=== PATIENT | female | born 1970 | race Caucasian/White ===

== ENCOUNTER 2020-02-26 10:08 | Outpatient (REF) | payer OTHER, BC, SELFPAY ==
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
== END 2020-02-26 10:09 | disposition home or self-care (01) ==
LOC: HO.HMGCX 10:08
PROVIDERS: PCP Internal Medicine; Visit Provider Nurse Practitioner Family
DX: M54.2 Cervicalgia (principal); V87.7XXA Person injured in collision between other specified motor vehicles (traffic), initial encounter
CPT/HCPCS: 72040

== ENCOUNTER 2020-05-20 09:00 | Outpatient (RCR) | payer OTHER, BC, SELFPAY ==
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
== END 2020-07-02 14:58 | disposition home or self-care (01) ==
LOC: HO.PTCHIC 09:00
PROVIDERS: Visit Provider Internal Medicine
DX: M54.2 Cervicalgia (principal); Z87.828 Personal history of other (healed) physical injury and trauma
CPT/HCPCS: 97014; 97110; 97140; 97161

== ENCOUNTER 2020-10-09 11:16 | Outpatient (REF) | payer BC, SELFPAY ==
--- NOTE | ~2020-10-09 | XR_ITS ---
EXAMINATION: XR FOOT, RIGHT CLINICAL INFORMATION: Right foot pain COMPARISON: None TECHNIQUE: AP, lateral, and oblique views of the right foot. FINDINGS: The bones and soft tissues are normal. No fracture. Alignment is anatomic. Joint spaces are maintained. XR/XR foot RT min 3V IMPRESSION: Unremarkable right foot exam
[2020-10-09 14:39] LABS: Erythrocyte Sedimentation Rate 10 MM/HR (0-20)
== END 2020-10-09 11:17 | disposition home or self-care (01) ==
LOC: HO.HMGCX 11:16
PROVIDERS: PCP Internal Medicine; Visit Provider Nurse Practitioner Family
DX: M79.676 Pain in unspecified toe(s) (principal)
CPT/HCPCS: 36415; 73630; 84550; 85652

== ENCOUNTER 2020-10-16 12:56 | Outpatient (REF) | payer BC, SELFPAY ==
--- NOTE | ~2020-10-16 | US_ITS ---
EXAMINATION: ULTRASOUND EXTREMITY NONVASCULAR CLINICAL INFORMATION: Bilateral axillary localized swelling, mass and lump COMPARISON: None TECHNIQUE: Grayscale and color imaging of both axilla using linear and curved transducers FINDINGS: No adenopathy is seen. No solid or cystic mass is seen. US/US extremity nonvascular IMPRESSION: No abnormality seen by ultrasound.
== END 2020-10-16 12:57 | disposition home or self-care (01) ==
LOC: HO.HMGCX 12:56
PROVIDERS: PCP Internal Medicine; Visit Provider Nurse Practitioner Family
DX: R22.30 Localized swelling, mass and lump, unspecified upper limb (principal)
CPT/HCPCS: 76882

== ENCOUNTER 2022-10-23 09:02 | Outpatient (AMB) | payer BC, SELFPAY ==
[2022-10-23 09:09] VITALS: BP 140/90; PULSE 98; RESP 12; TEMP 36.7; O2SAT 98; BMI 31.0
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
[2022-10-23 10:04] VITALS: BP 130/90
== END 2022-10-23 10:11 | disposition home or self-care (01) ==
PROVIDERS: PCP Internal Medicine; Visit Provider Nurse Practitioner Family
DX: G43.109 Migraine with aura, not intractable, without status migrainosus (principal); R20.2 Paresthesia of skin; Z12.11 Encounter for screening for malignant neoplasm of colon; Z12.39 Encounter for other screening for malignant neoplasm of breast; Z00.00 Encounter for general adult medical examination without abnormal findings
CPT/HCPCS: 99214

== ENCOUNTER 2022-10-29 14:41 | Outpatient (REF) | payer BC, SELFPAY ==
--- NOTE | ~2022-10-29 | MM_ITS ---
EXAMINATION: MM SCREENING DIGITAL BREAST TOMOSYNTHESIS, BILATERAL CLINICAL INFORMATION: Screening. Asymptomatic. The lifetime risk of breast cancer based on the Tyrer-Cuzick Model is 8.6%. COMPARISON: Mammography: This study is compared with the prior exam [id number]. TECHNIQUE: Digital breast tomosynthesis is performed in both the craniocaudal and mediolateral oblique views along with computer-aided detection (CAD). Synthesized 2D images are generated from the tomosynthesis. FINDINGS: The breasts are heterogeneously dense, which may obscure small masses (ACR BI-RADS breast composition Category c). There are no significant masses, abnormal calcifications, or other abnormalities. Few, benign calcifications are present in each breast. MM/MM tomosynthesis screening BI IMPRESSION: No mammographic evidence of malignancy. ASSESSMENT: BI-RADS BI-RADS 2 - Benign Findings RECOMMENDATION: Routine annual mammography screening. 1 year F/U This examination should not preclude the clinical evaluation of a suspicious palpable abnormality. This patient's information was entered into a reminder system with a target due date for their next mammogram.
== END 2022-10-29 14:42 | disposition home or self-care (01) ==
LOC: HO.MAMMO 14:41
PROVIDERS: Visit Provider Nurse Practitioner Family
DX: Z12.31 Encounter for screening mammogram for malignant neoplasm of breast (principal)
CPT/HCPCS: 77063; 77067

== ENCOUNTER → 2022-10-29 15:15 | Outpatient (BNV) | payer BC, SELFPAY | PROVIDERS: Visit Provider Radiology Diagnostic Radiology | DX: Z12.31 Encounter for screening mammogram for malignant neoplasm of breast (principal) | CPT/HCPCS: 77063; 77067 ==

== ENCOUNTER 2022-10-30 07:22 | Outpatient (REF) | payer BC, SELFPAY ==
[2022-10-30 11:22] LABS: MANUAL DIFF FLAG NO
[2022-10-30 11:57] LABS: Appearance Urine Clear; Color Urine Yellow; Glucose Urine UA Negative (Negative); Leukocyte Esterase Urine Negative (Negative); Nitrite Urine Negative (Negative); Specific Gravity - Urine 1.025 (1.005-1.025); UMIC TRIGGER UACC YES; Urine Blood Trace (Negative); Urine Ketones Negative (Negative); Urine Protein 30 (1+) mg/dL (Neg-Trace)
[2022-10-30 12:46] LABS: Basophils Absolute Auto 0.1 X10*3/uL (0.0-0.2); Basophils Percent Auto 1.3 % (0-2); Eosinophils Absolute Auto 0.3 X10*3/uL (0.0-0.4); Eosinophils Percent Auto 4.3 % (0-4); Hematocrit 33.5 % (37.0-47.0); Imm Gran Abs Auto 0.02 X10*3/uL (0.00-0.03); Imm Gran Pct Auto 0.3 % (0.0-0.4); Lymphocytes Absolute Auto 2.3 X10*3/uL (1.2-4.9); Lymphocytes Percent Auto 34.2 % (20-40); Mean Corpuscular HGB Conc 29.9 g/dl (31.0-35.0); Mean Corpuscular Hemoglobin 21.9 pg (27.0-33.0); Mean Corpuscular Volume 73.3 fL (80.0-98.0); Mean Platelet Volume 9.5 fL (9.4-12.3); Monocytes Absolute Auto 0.4 X10*3/uL (0.1-1.2); Monocytes Percent Auto 6.3 % (2-11); Neutrophils Absolute Auto 3.6 x10*3/uL (2.0-8.3); Neutrophils Percent Auto 53.6 % (45-73); Platelet Count 482 X10*3/uL (160-400); Red Blood Count 4.57 X10*6/uL (4.20-5.50); Red Cell Distribution Width 17.3 % (11.0-16.0); White Blood Count 6.8 X10*3/uL (4.8-10.8)
[2022-10-30 13:41] LABS: Alanine Aminotransferase 24 U/L (0-31); Albumin Level 4.3 g/dL (3.5-5.0); Alkaline Phosphatase 76 U/L (39-117); Anion Gap 11 (12-20); Aspartate Amino Transferase 21 U/L (5-31); Bilirubin Total 0.6 mg/dL (0.0-1.0); Blood Urea Nitrogen 10 mg/dL (9-16); Calcium 9.4 mg/dL (8.4-10.2); Carbon Dioxide 27 mmol/L (22-29); Chloride 105 mmol/L (96-108); Cholesterol 182 mg/dL; Estimated Glomerular Filt Rate > 60; Glucose Fasting 122 mg/dL (60-99); HDL Cholesterol 45 mg/dL; LDL Cholesterol Calculated 115 mg/dl; Sodium 140 mmol/L (135-145); Total Protein 7.3 g/dL (6.5-8.0); Triglycerides 111 mg/dL
[2022-10-30 13:44] LABS: Bacteria Urine None Seen (None Seen); Calcium Oxalate Crystals Urine Present; UACC Culture Trigger YES
[2022-10-30 13:45] LABS: TSH reflex Free T4 0.67 uIU/mL (0.32-4.0)
[2022-10-30 14:44] LABS: Iron 28 mcg/dL (30-160); Percent Iron Saturation 7 % (15-50); Total Iron Binding Capacity 391 mcg/dL (228-428); Unsaturated Iron Binding 363 ug/dL
== END 2022-10-30 07:23 | disposition home or self-care (01) ==
LOC: HO.HMGCLDS 07:22
PROVIDERS: PCP Nurse Practitioner Family; Visit Provider Nurse Practitioner Family
DX: Z00.00 Encounter for general adult medical examination without abnormal findings (principal); R82.90 Unspecified abnormal findings in urine; Z86.2 Personal history of diseases of the blood and blood-forming organs and certain disorders involving the immune mechanism
CPT/HCPCS: 36415; 80053; 80061; 81001; 83540; 84443; 85025; 87086

== ENCOUNTER 2022-11-11 06:56 | Outpatient (REF) | payer BC, SELFPAY ==
[2022-11-11 11:45] LABS: Appearance Urine Turbid; Color Urine Yellow; Glucose Urine UA Negative (Negative); Leukocyte Esterase Urine Negative (Negative); Nitrite Urine Negative (Negative); PH 5.5 (5.0-9.0); Urine Blood Negative (Negative); Urine Ketones Trace mg/dL (Negative); Urine Protein Trace mg/dL (Neg-Trace)
[2022-11-11 11:55] LABS: Hematocrit 33.9 % (37.0-47.0); Hemoglobin 10.1 g/dl (12.0-16.0); Mean Corpuscular HGB Conc 29.8 g/dl (31.0-35.0); Mean Corpuscular Hemoglobin 21.7 pg (27.0-33.0); Mean Corpuscular Volume 72.7 fL (80.0-98.0); Mean Platelet Volume 9.5 fL (9.4-12.3); Platelet Count 369 X10*3/uL (160-400); Red Blood Count 4.66 X10*6/uL (4.20-5.50); Red Cell Distribution Width 17.9 % (11.0-16.0); White Blood Count 7.5 X10*3/uL (4.8-10.8)
[2022-11-11 12:22] LABS: Alanine Aminotransferase 25 U/L (0-31); Albumin Level 4.2 g/dL (3.5-5.0); Alkaline Phosphatase 70 U/L (39-117); Anion Gap 14 (12-20); Aspartate Amino Transferase 22 U/L (5-31); Bilirubin Total 0.4 mg/dL (0.0-1.0); Blood Urea Nitrogen 12 mg/dL (9-16); Calcium 9.3 mg/dL (8.4-10.2); Carbon Dioxide 22 mmol/L (22-29); Chloride 109 mmol/L (96-108); Estimated Glomerular Filt Rate > 60; Ferritin 11 ng/mL (10-250); Glucose Fasting 114 mg/dL (60-99); Iron 18 mcg/dL (30-160); Percent Iron Saturation 5 % (15-50); Potassium 3.7 mmol/L (3.3-5.1); Sodium 141 mmol/L (135-145); Total Iron Binding Capacity 389 mcg/dL (228-428); Total Protein 7.3 g/dL (6.5-8.0); Unsaturated Iron Binding 371 ug/dL
[2022-11-11 12:44] LABS: Folate 10.2 ng/mL (> or = 4.0); Vitamin B12 580 pg/mL (200-900)
== END 2022-11-11 06:57 | disposition home or self-care (01) ==
LOC: HO.HMGCLDS 06:56
PROVIDERS: PCP Nurse Practitioner Family; Visit Provider Nurse Practitioner Family
DX: Z00.00 Encounter for general adult medical examination without abnormal findings (principal); R73.01 Impaired fasting glucose; E87.6 Hypokalemia; D75.839 Thrombocytosis, unspecified; D50.9 Iron deficiency anemia, unspecified
CPT/HCPCS: 36415; 80053; 81003; 82607; 82728; 82746; 83540; 85027

== ENCOUNTER 2022-11-23 10:31 | Outpatient (AMB) | payer BC, SELFPAY ==
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
[2022-11-23 11:00] VITALS: BP 132/80; PULSE 104; RESP 12; TEMP 36.8; O2SAT 98; BMI 30.8
== END 2022-11-23 11:31 | disposition home or self-care (01) ==
PROVIDERS: PCP Internal Medicine; Visit Provider Nurse Practitioner Family
DX: Z00.00 Encounter for general adult medical examination without abnormal findings (principal); D50.9 Iron deficiency anemia, unspecified; E87.6 Hypokalemia; D75.839 Thrombocytosis, unspecified; R73.01 Impaired fasting glucose
CPT/HCPCS: 99396

== ENCOUNTER 2022-12-22 10:19 | Outpatient (AMB) | payer BC, SELFPAY ==
[2022-12-22 10:03] VITALS: BP 130/70; BMI 30.3
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
== END 2022-12-22 11:16 | disposition home or self-care (01) ==
PROVIDERS: PCP Nurse Practitioner Family; Visit Provider Physician Assistant
DX: Z01.818 Encounter for other preprocedural examination (principal); Z12.11 Encounter for screening for malignant neoplasm of colon
CPT/HCPCS: S0285

== ENCOUNTER → 2022-12-22 10:19 | Outpatient (BNVA) | payer BC, SELFPAY | PROVIDERS: PCP Nurse Practitioner Family; Visit Provider Physician Assistant ==

== ENCOUNTER 2023-01-01 11:44 | Outpatient (AMB) | payer BC, SELFPAY ==
[2023-01-01 11:51] VITALS: BP 126/74; PULSE 87; RESP 12; TEMP 36.2; O2SAT 99; BMI 30.7
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
== END 2023-01-01 12:59 | disposition home or self-care (01) ==
PROVIDERS: PCP Nurse Practitioner Family; Visit Provider Nurse Practitioner Family
DX: R07.89 Other chest pain (principal); R06.02 Shortness of breath
CPT/HCPCS: 99213

== ENCOUNTER 2023-01-01 12:54 | Outpatient (REF) | payer BC, SELFPAY ==
[2023-01-01 14:39] LABS: Hematocrit 35.2 % (37.0-47.0); Hemoglobin 10.5 g/dl (12.0-16.0); Mean Corpuscular HGB Conc 29.8 g/dl (31.0-35.0); Mean Corpuscular Hemoglobin 22.9 pg (27.0-33.0); Mean Corpuscular Volume 76.7 fL (80.0-98.0); Mean Platelet Volume 9.7 fL (9.4-12.3); Platelet Count 393 X10*3/uL (160-400); Red Blood Count 4.59 X10*6/uL (4.20-5.50); White Blood Count 6.3 X10*3/uL (4.8-10.8)
[2023-01-01 15:06] LABS: Troponin-I High Sensitivity < 2.7 ng/L (<3.5-17.0)
[2023-01-01 15:13] LABS: Ferritin 9 ng/mL (10-250); Iron 25 mcg/dL (30-160); Percent Iron Saturation 7 % (15-50); Total Iron Binding Capacity 369 mcg/dL (228-428); Unsaturated Iron Binding 344 ug/dL
== END 2023-01-01 12:55 | disposition home or self-care (01) ==
LOC: HO.WFDLDS 12:54
PROVIDERS: Visit Provider Nurse Practitioner Family
DX: D50.9 Iron deficiency anemia, unspecified (principal); R07.89 Other chest pain; R06.02 Shortness of breath
CPT/HCPCS: 36415; 82728; 83540; 84484; 85027

== ENCOUNTER → 2023-02-17 10:50 | Outpatient (REF) | payer BC, SELFPAY ==
--- NOTE | 2023-02-17 10:52 | CA_ITS ---
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 LV ejection fraction with moderate LVH with grade 1 diastolic dysfunction 2. Trivial aortic regurgitation 3. Mildly dilated ascending aorta at 3.7 cm 4. No gross pericardial effusion Findings Left Ventricle Normal left ventricular size and systolic function. There is moderately increased left ventricular wall thickness. The visually estimated ejection fraction is between 60-65%. Spectral Doppler is indicative of an impaired relaxation filling pattern. E/E prime ratio is <8, consistent with normal filling pressures. Right Ventricle Normal right ventricular cavity size and systolic function. Atria Both atria are normal in size. Interatrial shunt cannot be excluded. Aortic Valve Normal aortic valve structure and function. There is no aortic valve stenosis. There is trace (trivial) aortic valve regurgitation. Mitral Valve Normal mitral valve structure and function. There is trace mitral valve regurgitation. There is no mitral valve stenosis. Pulmonic Valve The pulmonic valve is likely normal. There is trace pulmonic valve regurgitation. Tricuspid Valve Normal tricuspid valve structure. There is trace tricuspid valve regurgitation. The right ventricular systolic pressure is normal. The right ventricular systolic pressure is 18 mmHg. Normal right atrial pressure. There is no evidence of pulmonary hypertension. Great Vessels The pulmonary artery was not well visualized. There is mild dilatation of the ascending aorta measuring 3.70 cm. Venous The inferior vena cava is normal in size and collapses greater than 50% with inspiration. Pericardium/Pleural There is no evidence of pericardial effusion. Prior Study Comparison No prior study available for comparison. Measurements 2D Linear Measurements IVSd: 1.43 0.6-0.9/0.6-1.0 cm LVIDd: 4.00 3.9-5.3/4.2-5.9 cm LVIDd Index: 2.16 2.4-3.2/2.2-3.1 cm/m2 LVIDs: 2.64 2.0-3.6 cm LVPWd: 1.44 0.7-1.1 cm LA Diam: 3.20 2.7-3.8/3.0-4.0 cm LAIDs Index: 1.73 1.5-2.3 cm/m2 LV Mass: 270.65 67-162/88-224 g LV Mass Index: 146.30 43-95/49-115 g/m2 LVOT Diam: 2.00 3.0+(-)1.3 cm 2D Systolic Function EF 4C: 64.00 >55% EF 2C: 64.70 >55% EF BiP: 63.60 >55% Mitral Valve MV Pk E: 0.56 MV PK A: 0.79 MV Decel Time: 180.00 E/A: 0.70 E'Lateral: 5.55 E'Medial: 4.90 E/E' Med: 11.40 E/E' Lat: 10.00 PHT: 53.00 MVA PHT: 4.15 Decel Jay[place]: 3.10 Aortic Valve AoV Pk Joseph: 1.40 AoV Mn Joseph: 1.01 AoV VTI: 0.28 AoV Pk Grad: 8.00 Aov Mn Grad: 4.00 NAYA Cont.VTI: 2.19 LVOT LVOT Pk Joseph: 0.85 LVOT Mn Joseph: 0.61 LVOT VTI: 0.20 LVOT Pk Grad: 3.00 LVOT Mn Grad: 2.00 LVOT Diam: 2.00 LVOT Area: 3.14 Diastolic Function MV Pk E: 0.56 MV Pk A: 0.79 E/A: 0.70 E'Medial: 4.90 E/E' Med: 11.40 E' Laterial: 5.55 E/E' Lat: 10.00 Right Ventricle TAPSE (mm): 27.80 TVS' Joseph: 11.40 Tricuspid Valve TR Pk Joseph: 1.55 TR Pk Grad: 10.00 RA Press: 8.00 RVSP: 18.00 Great Vessels Aorta Sinus of Valsalva: 3.82 2.0-3.[address] [place]: 2.79 1.7-3.4 cm Ao Asc: 3.70 2.1-3.4 cm Updated in Other Vendor System with Status of Final Julio Hurtado MD electronically signed on 02/17/2023 5:27:18 PM with status of Final
== END ==
LOC: HO.CARD 10:50
PROVIDERS: PCP Nurse Practitioner Family; Visit Provider Nurse Practitioner Family
DX: R07.89 Other chest pain (principal); R06.02 Shortness of breath
CPT/HCPCS: 93306

== ENCOUNTER → 2023-02-17 10:52 | Outpatient (BNV) | payer BC, SELFPAY | PROVIDERS: PCP Nurse Practitioner Family; Visit Provider Internal Medicine Cardiovascular Disease | DX: R07.89 Other chest pain (principal); R06.02 Shortness of breath | CPT/HCPCS: 93306 ==

== ENCOUNTER 2023-03-01 15:02 | Outpatient (AMB) | payer BC, SELFPAY ==
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
[2023-03-01 15:06] VITALS: BP 132/85; PULSE 95; BMI 30.6
== END 2023-03-01 15:23 | disposition home or self-care (01) ==
PROVIDERS: PCP Nurse Practitioner Family; Visit Provider Internal Medicine
DX: R07.89 Other chest pain (principal)
CPT/HCPCS: 99203

== ENCOUNTER → 2023-03-01 15:02 | Outpatient (BNVA) | payer BC, SELFPAY | PROVIDERS: PCP Nurse Practitioner Family; Visit Provider Internal Medicine ==

== ENCOUNTER 2023-03-26 13:29 | Outpatient (AMB) | payer BC, SELFPAY ==
[2023-03-26 13:49] VITALS: BP 128/78; PULSE 106; RESP 13; TEMP 36.5; O2SAT 99; BMI 31.0
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
== END 2023-03-26 14:45 | disposition home or self-care (01) ==
PROVIDERS: PCP Nurse Practitioner Family; Visit Provider Nurse Practitioner Family
DX: D50.9 Iron deficiency anemia, unspecified (principal); G43.909 Migraine, unspecified, not intractable, without status migrainosus
CPT/HCPCS: 99213

== ENCOUNTER 2023-09-21 12:01 | Outpatient (AMB) | payer BC, SELFPAY ==
--- OUTSIDE RECORDS SUMMARY | 2023-09-21 12:03 | XMS_ITS | Continuity of Care Document ---
Author Organization [facility] Address [address] [place] [address]- Care Team Providers Care Pony Trimmer Name Role Phone Radha Roy NP Primary Care Physician [place] [facility] [place] 11/02/22 - 12/02/22 [facility] [address] [place] [address]- Allergies, Adverse Reactions, Alerts No Known Allergies Medications diclofenac 1% topical gel See Instructions, apply a thin film to left Lateral chest wall twice a day, # 100 Gm, 0 Refills, Maintenance, 11/23/22 14:27:00 EDT, [facility]/pharmacy #[id number], Partial fill upon patient request if the prescription is for a schedule II opioid drug., 161.2, cm... Start Date: 11/23/22 Status: Ordered Iron 100 Plus By Mouth, Daily, 0 Refills, Maintenance, 11/23/22 13:34:00 EDT, Partial fill upon patient request if the prescription is for a schedule II opioid drug. Start Date: 11/23/22 Status: Ordered Problem List Condition Confirmation Course Effective Dates Status Health St atus Informant Obese class I Confirmed Active Social History Social History Type Response Smoking Status Never (less than 100 in lifetime) entered on: 11/23/22 Sex Patient Care team information Care Team Personnel Name: Radha Roy NP Position: Reference Physician Member Role: PCP Address: Address: [address] [place] [id number]- Care Team Related Persons Name: GO ALEN Address: home [address] [place] [address]
--- OUTSIDE RECORDS SUMMARY | 2023-09-21 12:03 | XMS_ITS | Continuity of Care Document ---
Author Organization [facility] ter Address [address] [place] [id number]- Care Team Providers Care Deck Mate Name Role Phone Radha Roy NP Primary Care Physician [place] [facility] [place]03/23 - 06/13/[address] [address]- Attending Physician: Delroy Zhao MD Admitting Physician: Delroy Zhao MD Referring Physician: Delroy Zhao MD Allergies, Adverse Reactions, Alerts No Known Allergies Medications diclofenac 1% topical gel See Instructions, apply a thin film to left Lateral chest wall twice a day, # 100 Gm, 0 Refills, Maintenance, 11/23/22 14:27:00 EDT, [facility]/pharmacy #[id number], Partial fill upon patient request if [...] Reference Physician Member Role: PCP Address: Address: [address] [place] [id number]- Care Team Related Persons Name: ALEN STILES Address: home [address] [place] [address]
--- OUTSIDE RECORDS SUMMARY | 2023-09-21 12:03 | XMS_ITS | Continuity of Care Document ---
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 Or Night Nurse Supervisor Name Role Phone Radha Roy NP Primary Care Physician Encounter [facility] [place] Date(s): 11/23/22 - 03/19/23 [facility] [address] [place] [address]- Attending Physician: Rebecca Gupta MD Admitting Physician: Rebecca Gupta MD Referring Physician: Radha Roy NP Allergies, Adverse Reactions, Alerts No Known Allergies Medications diclofenac 1% topical gel See Instructions, apply a thin film to left Lateral chest wall twice a day, # 100 Gm, 0 Refills, Maintenance, 11/23/22 14:27:00 EDT, [facility]/pharmacy #[id number], Partial fill upon patient request [...] Reference Physician Member Role: PCP Address: Address: [address] [place] [id number]- Care Team Related Persons Name: ALEN STILES Address: home [address] [place] [address]
--- OUTSIDE RECORDS SUMMARY | 2023-09-21 12:03 | XMS_ITS | Continuity of Care Document ---
Author Organization [facility] Address [address] [place] [address]- Care Team Providers Care Prop Sawyer Name Role Phone Radha Roy NP Primary Care Physician [place] [facility] [place](s): 02/17/23 - 03/19/23 [facility] [address] [place] [address]- Attending Physician: Cecelia Mercado Admitting Physician: AdmCecelia martinez Referring Physician: Admtr, Ar8 Allergies, Adverse Reactions, Alerts No Known Allergies [...] 100 in lifetime) entered on: 11/23/22 Sex MG Breast Views * Event Display: MM Mammogram Authored Date: * Event Display: MM Mammogram Authored Date: * Event Display: MM Mammogram Authored Date: Patient Care team information Care Team Personnel Name: Radha Roy NP Position: Reference Physician Member Role: PCP Address: Address: [address] [place] [id number]- Care Team Related Persons Name: ALEN STILES Address: home [address] [place] [address]
[2023-09-21 12:09] VITALS: BP 130/80; PULSE 122; TEMP 36.4; O2SAT 100; BMI 30.6
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
== END 2023-09-21 12:46 | disposition home or self-care (01) ==
PROVIDERS: PCP Nurse Practitioner Family; Visit Provider Physician Assistant
DX: J02.9 Acute pharyngitis, unspecified (principal)
CPT/HCPCS: 87880; 99213

== ENCOUNTER 2023-09-21 17:01 | Outpatient (REF) | payer BC, SELFPAY ==
[2023-09-21 17:49] LABS: Influenza A PCR NEGATIVE (Negative); Influenza B PCR NEGATIVE (Negative); Resp Syncy Virus RNA Qual PCR NEGATIVE (Negative); SARS COV2 PCR INHOUSE POSITIVE (Negative)
== END 2023-09-21 17:02 | disposition home or self-care (01) ==
LOC: HO.LNP 17:01
PROVIDERS: Visit Provider Physician Assistant
DX: J06.9 Acute upper respiratory infection, unspecified (principal); Z13.9 Encounter for screening, unspecified
CPT/HCPCS: 0241U

== ENCOUNTER 2023-11-01 14:27 | Outpatient (REF) | payer BC, SELFPAY ==
--- NOTE | ~2023-11-01 | MM_ITS ---
EXAMINATION: MM DIAGNOSTIC DIGITAL BREAST TOMOSYNTHESIS, BILATERAL US BREAST LIMITED, BILATERAL MAMMOGRAPHY: CLINICAL INFORMATION: Patient complaining of bilateral axillary swelling. Due for yearly screening. COMPARISON: Mammography: 10/29/2022, 10/16/2020, 10/31/2015. TECHNIQUE: Digital breast tomosynthesis is performed in both the craniocaudal and mediolateral oblique views along with computer-aided detection (CAD). Synthesized 2D images are generated from the tomosynthesis. In addition, full-field 3-D bilateral lateral exaggerated cc views were obtained. FINDINGS: The breasts are heterogeneously dense, which may obscure small masses (ACR BI-RADS breast composition Category c). There are bilateral skin calcifications, unchanged. There are bilateral prominent axillary fat pads. This is likely what the patient is feeling. No abnormal lymph nodes or skin abnormalities. There are no suspicious masses, suspicious grouped calcifications, or areas of architectural distortion in either breast. There are bilateral small oval and round circumscribed masses consistent with multiple cysts. The heterogeneously dense parenchymal pattern is stable from prior exams. There is no skin or axillary abnormality. ULTRASOUND: CLINICAL INFORMATION: Bilateral axillary swelling. COMPARISON: None TECHNIQUE: Targeted sonographic evaluation of both axillae was performed using a high frequency linear transducer. Selected archived documentation. FINDINGS: RIGHT AXILLA: There is fatty axillary tissue. No suspicious mass is seen. There is no cystic abnormality. There is no pathologic acoustic shadowing. There is no axillary adenopathy. LEFT BREAST: There is fatty axillary tissue. No suspicious mass is seen. There is no cystic abnormality. There is no pathologic acoustic shadowing. There is no axillary adenopathy. MM/MM tomosynthesis diagnostic BI IMPRESSION: -There are no findings suspicious for malignancy in either breast. -There are benign findings bilaterally. -No sonographic or mammographic abnormality evident in the bilateral axillary regions. There are prominent axillary fat pads, which the patient is likely feeling. These are benign. -Recommend the patient resume routine annual screening to include both breasts. OVERALL ASSESSMENT: Mammography: BI-RADS 2 - Benign Findings Ultrasound: BI-RADS 2 - Benign Findings RECOMMENDATION: 1 year F/U Results were provided to the patient at time of visit by the technologist. This patient's information was entered into a reminder system with a target due date for their next mammogram.
== END 2023-11-01 14:28 | disposition home or self-care (01) ==
LOC: HO.MAMMO 14:27
PROVIDERS: Absent Provider Obstetrics & Gynecology Female Pelvic Medicine and Reconstructive Surgery; PCP Nurse Practitioner Family; Visit Provider Nurse Practitioner Family
DX: N63.20 Unspecified lump in the left breast, unspecified quadrant (principal); N63.21 Unspecified lump in the left breast, upper outer quadrant
CPT/HCPCS: 76642; 77062; 77066

== ENCOUNTER → 2023-11-01 14:45 | Outpatient (BNV) | payer BC, SELFPAY | PROVIDERS: Absent Provider Obstetrics & Gynecology Female Pelvic Medicine and Reconstructive Surgery; PCP Nurse Practitioner Family; Visit Provider Radiology Diagnostic Radiology | DX: R92.1 Mammographic calcification found on diagnostic imaging of breast (principal) | CPT/HCPCS: 76642; 77062; 77066 ==

== ENCOUNTER 2023-11-18 14:10 | Outpatient (AMB) | payer BC, SELFPAY ==
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
[2023-11-18 14:25] VITALS: BP 149/79; PULSE 89; BMI 29.6
== END 2023-11-18 14:34 | disposition home or self-care (01) ==
PROVIDERS: PCP Nurse Practitioner Family; Visit Provider Surgery
DX: D17.20 Benign lipomatous neoplasm of skin and subcutaneous tissue of unspecified limb (principal)
CPT/HCPCS: 99204

== ENCOUNTER → 2023-11-18 14:10 | Outpatient (BNVA) | payer BC, SELFPAY | PROVIDERS: PCP Nurse Practitioner Family; Visit Provider Surgery ==

== ENCOUNTER 2024-01-27 09:13 | Outpatient (AMB) | payer BC, SELFPAY ==
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
[2024-01-27 10:16] VITALS: BP 120/84; PULSE 104; TEMP 36.8; O2SAT 100; BMI 27.8
== END 2024-01-27 10:31 | disposition home or self-care (01) ==
PROVIDERS: PCP Nurse Practitioner Family; Visit Provider Registered Nurse
DX: J30.1 Allergic rhinitis due to pollen (principal); B37.9 Candidiasis, unspecified

== ENCOUNTER → 2024-04-26 11:01 | Outpatient (REF) | payer BC, SELFPAY ==
--- NOTE | 2024-04-26 11:09 | CA_ITS ---
Transthoracic Echocardiogram Patient (Last, First, Middle): Kel Berrios, Gender: Female Date of : 1970 Age: 53 Procedure Date: 04/26/2024 Procedure Type: Transthoracic Echocardiogram Location: OP Height: 165.1 cm Weight: 80.74 kg BSA: 1.88 m2 Heart Rate: bpm BP: 120 / 80 mmHg Mortgage Field Inspector: CORRY Garcias MD: Delroy Zhao MD [employer] Specialist: Julio Hurtado MD Symptoms: I77.89 - Other specified disorders of arteries and arterioles Study Quality: Adequate ECG Rhythm: Sinus Conclusions: - Mildly dilated ascending aorta at 3.8 cm Findings Great Vessels There is mild dilatation of the ascending aorta measuring 3.80 cm. Small plaque is seen in the ascending aorta. Prior Study Comparison No significant change compared to prior study dated: 02/17/2023. Measurements 2D Linear Measurements Ao Root: 3.80 2.1-3.5 cm LVOT Diam: 2.00 3.0+(-)1.3 cm Mitral Valve MV Pk E: 0.51 MV PK A: 0.83 MV Decel Time: 77.00 E/A: 0.60 E'Lateral: 7.18 E'Medial: 6.64 E/E' Med: 7.60 E/E' Lat: 7.00 PHT: 23.00 MVA PHT: 9.57 Decel [place]: 6.55 LVOT LVOT Pk Joseph: 0.97 LVOT Mn Joseph: 0.69 LVOT VTI: 0.20 LVOT Pk Grad: 4.00 LVOT Mn Grad: 2.00 LVOT Diam: 2.00 LVOT Area: 3.14 Diastolic Function MV Pk E: 0.51 MV Pk A: 0.83 E/A: 0.60 E'Medial: 6.64 E/E' Med: 7.60 E' Laterial: 7.18 E/E' Lat: 7.00 Great Vessels Aorta Ao Root-2D: 3.80 2.0-3.7 cm Ao Asc: 3.80 2.1-3.4 cm Ao Arch: 3.60 Updated in Other Vendor System with Status of Final Julio Hurtado MD electronically signed on 04/27/2024 1:25:45 PM with status of Final
== END ==
LOC: HO.CARD 11:01
PROVIDERS: PCP Nurse Practitioner Family; Visit Provider Internal Medicine
DX: I77.89 Other specified disorders of arteries and arterioles (principal)
CPT/HCPCS: 93308

== ENCOUNTER → 2024-04-26 11:09 | Outpatient (BNV) | payer BC, SELFPAY | PROVIDERS: PCP Nurse Practitioner Family; Visit Provider Internal Medicine Cardiovascular Disease | DX: I77.810 Thoracic aortic ectasia (principal) | CPT/HCPCS: 93308; 93321 ==

== ENCOUNTER 2024-05-02 08:39 | Outpatient (AMB) | payer BC, SELFPAY ==
[2024-05-02 09:07] VITALS: BP 124/72; PULSE 88; BMI 26.8
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
== END 2024-05-02 09:55 | disposition home or self-care (01) ==
PROVIDERS: PCP Nurse Practitioner Family; Visit Provider Nurse Practitioner Family
DX: R07.89 Other chest pain (principal); R06.02 Shortness of breath; I77.810 Thoracic aortic ectasia
CPT/HCPCS: 93010; 99213

== ENCOUNTER → 2024-05-02 08:39 | Outpatient (BNVA) | payer BC, SELFPAY | PROVIDERS: PCP Nurse Practitioner Family; Visit Provider Nurse Practitioner Family | DX: R07.89 Other chest pain (principal); R06.02 Shortness of breath; I77.810 Thoracic aortic ectasia | CPT/HCPCS: 93005 ==

== ENCOUNTER 2024-07-14 13:22 | Outpatient (REF) | payer BC, SELFPAY ==
[2024-07-14 14:49] LABS: MANUAL DIFF FLAG NO
[2024-07-14 15:24] LABS: Basophils Percent Auto 0.7 % (0-2); Eosinophils Absolute Auto 0.2 X10*3/uL (0.0-0.4); Eosinophils Percent Auto 2.8 % (0-4); Imm Gran Abs Auto 0.02 X10*3/uL (0.00-0.03); Imm Gran Pct Auto 0.3 % (0.0-0.4); Lymphocytes Absolute Auto 1.9 X10*3/uL (1.2-4.9); Lymphocytes Percent Auto 30.5 % (20-40); Mean Corpuscular HGB Conc 28.5 g/dl (31.0-35.0); Mean Corpuscular Hemoglobin 19.3 pg (27.0-33.0); Mean Corpuscular Volume 67.7 fL (80.0-98.0); Mean Platelet Volume 9.2 fL (9.4-12.3); Monocytes Absolute Auto 0.4 X10*3/uL (0.1-1.2); Monocytes Percent Auto 7.1 % (2-11); Neutrophils Absolute Auto 3.6 x10*3/uL (2.0-8.3); Neutrophils Percent Auto 58.6 % (45-73); Platelet Count 389 X10*3/uL (160-400); Red Blood Count 2.54 X10*6/uL (4.20-5.50); Red Cell Distribution Width 18.6 % (11.0-16.0); White Blood Count 6.1 X10*3/uL (4.8-10.8)
[2024-07-14 16:06] LABS: Alanine Aminotransferase 10 U/L (0-31); Anion Gap 11 (12-20); Aspartate Amino Transferase 19 U/L (5-31); Blood Urea Nitrogen 9 mg/dL (9-16); Calcium 8.9 mg/dL (8.4-10.2); Carbon Dioxide 28 mmol/L (22-29); Chloride 106 mmol/L (96-108); Estimated Glomerular Filt Rate > 60; Glucose Random 86 mg/dL (60-115); Magnesium 2.2 mg/dL (1.6-2.6); Potassium 3.2 mmol/L (3.3-5.1); Sodium 142 mmol/L (135-145); Total Protein 6.8 g/dL (6.5-8.0)
[2024-07-14 16:07] LABS: Alkaline Phosphatase 62 U/L (39-117); Bilirubin Total 0.5 mg/dL (0.0-1.0)
[2024-07-14 16:20] LABS: TSH reflex Free T4 0.64 uIU/mL (0.32-4.0)
[2024-07-14 16:45] LABS: D Dimer High Sensitivity 428 NG/ML
[2024-07-14 16:46] LABS: Hematocrit 17.2 % (37.0-47.0); Hemoglobin 4.9 g/dl (12.0-16.0)
== END 2024-07-14 13:23 | disposition home or self-care (01) ==
LOC: HO.LAB 13:22
PROVIDERS: PCP Nurse Practitioner Family; Visit Provider Nurse Practitioner Family
DX: R55 Syncope and collapse (principal)
CPT/HCPCS: 36415; 80053; 83735; 84443; 85025; 85379; 93005

== ENCOUNTER 2024-07-14 13:22 | Outpatient (AMB) | payer BC, SELFPAY ==
[2024-07-14 13:41] VITALS: BP 113/61; PULSE 97; BMI 26.8
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
[2024-07-14 13:42] VITALS: BP 113/71; BP 122/67; PULSE 100; PULSE 101
--- OUTSIDE RECORDS SUMMARY | 2024-07-14 15:14 | XMS_ITS | Data Portability ---
Author Organization 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 The onset of pain was in December 2022, following the administration of numerous flu shots. The patient describes the pain intensity as a 4-5 on a scale of 10 at rest, which increases during grabbing or lifting objects. Despite trying warm and cold compresses, the patient has not taken any anti-inflammatory medications. The pain has resulted in weakness in the right arm, leading the patient to rely on their left hand for support during activities. She has a past history of gastritis. She takes no medications. She has no medication allergies. She is and employed. She denies tobacco use. No personal history of blood clots, however, she does have a family history. Past medical, surgical, family and social history; Medications, Allergies and 12-point review of systems have been reviewed, updated and charted. Physical Examination: Height and weight as noted in chart. Constitutional: Patient pleasant, well appearing and in NAD. Mental status: Patient is alert and oriented to person, place and time. No short-term memory deficits. Psychiatric: Mood and affect are appropriate. Head: Normocephalic and atraumatic. Exterior inspection of the ears and nose was unremarkable. Hearing grossly intact. Eyes: Sclera are not blue. 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 Full extraocular motion. Neck: Supple with age-appropriate ROM. No tracheal deviation. No obvious JVD. Respiratory: Non-labored breathing. Symmetric excursion. No audible wheezing or crackles. Skin: No rashes, lesions, wounds to the upper extremities. Normal turgor and coloration. Musculoskeletal: On examination of the right elbow, there is no effusion, erythema or ecchymosis. Range of motion from 0-135? ? ?. She has full pronosupination. Her elbow is stable to varus and valgus stress. Distal biceps and distal triceps intact. She has point tenderness directly over the common extensor origin at the lateral epicondyle. Imaging: X-rays ordered, obtained and reviewed at [facility]. These images included 3 views of the right elbow. No acute fractures or dislocations. Normal radiocapitellar and ulnohumeral joint space. 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 I discussed etiology of the patient's symptoms with her at length today. I recommended a conservative course to include a cortisone injection to the right elbow common extensor origin today that she tolerated very well. I demonstrated eccentric strengthening exercises and also provided a home handout for exercises and stretches. I referred her for an elbow sleeve to provide compressive support. Should her symptoms fail to improve and/or recur despite these conservative measures over the next 2-3 months, recommend she call back for another visit. I did recommend she be careful with heavy lifting activities and activities that exacerbate her symptoms. All questions and concerns addressed. Today's visit involved examining the patient, reviewing the history, reviewing the radiographic studies, counseling the patient regarding treatment options, and the administrative tasks including placing orders, preparing patient information and home handouts and preparing the visit note. This note was generated with [facility] speech recognition body stylist dictation software. Please excuse any errors that may have been overlooked during review of this note. Sometimes, these errors may affect the content or meaning of a given sentence. Please call for corrections. Not available 07/15/2023 11:41:10 Plan of Treatment Reminders Order Date Submit Date Provider Last Modified By Organization Details Last Modified Time Details Appointments None record ed. Lab None record ed. Referral None record ed. Procedures None record ed. Surgeries None record ed. Imaging XR, elbow, 2 view 024 07/15/19 24 [email or web address] Not available 4 13:04:31 Medication Orders None record ed. Patient TargetsNo targets recorded. Patient InstructionsNo instructions recorded. Reason for Referral None Reported. Procedures Surgical History Date Name Laterality Status Provider Name and Address Organization Details Recorded Time 4 Elbow Kenalog 1cc Injection, L/R completed [facility] [address] [facility] [address], [address], [facility] 07/15/2023 11:43:49 Imaging Results None recorded. Procedure Notes None recorded. Medical Equipment None Reported. Allergies No known drug allergies Medications Name Sig Start Date Stop Date Status Note LastModified by Organization Details LastModified Time amoxicillin 500 mg capsule TAKE 1 CAPSULE BY MOUTH THREE TIMES A DAY FOR 7 DAYS active Not Available Not Available N ot Available fluconazole 150 mg tablet TAKE 1 TABLET AND REPEAT DOSE AFTER 72 HOURS IF NO IMPROVEMENT IN SYMPTOMS. active Not Available Not Available No t Available lidocaine 5 % topical patch APPLY 1 PATCH TOPICALLY DAILY LEAVE ON MOST PAINFUL AREA FOR UP TO 12 HOURS active Not Available Not Available Not Available indomethacin 50 mg capsule TAKE 1 CAPSULE BY MOUTH 3 TIMES A DAY ADMINISTER WITH FOOD OR MILK active Not Available Not Available No t Available fluticasone propionate 50 mcg/actuatio n nasal spray,suspen tatyana SPRAY 1 SPRAY INTO EACH NOSTRIL DAILY active Not Available Not Available No t Available iron active Not Available Not Availa ble Not Available diclofenac 1 % topical gel APPLY A THIN FILM TO LEFT LATERAL CHEST WALL TWICE A DAY active Not Available Not Available Not Available Vitals Date Recorded Body height Body mass index (BMI) Body weight Provider Name and Address Organization Details Last Updated DateTime 07/15/2023 160.02 cm 33.7 kg/m2 26834.55 g Diana Mcmahan [facility] 07/15/2023 10:36:18 Social History None recorded. Functional Status None recorded. Mental Status None recorded. Family History Nothing Reported. Medical History No medical history recorded. Gynecological HistoryNo gynecological history recorded. Obstetrics History GPAL:G 0 P 0 0 0 0 Past Encounters Encounter ID Performer Location Encounter Start Date Encounter Closed Date Diagnosis/Indication Diagnosis SNOMED-CT Code Diagnosis ICD10 Code Diagnosis Note [id number] Jeffery Soler MD [facility] 2nd floor [address] [place] [address] 07/15/2023 10:26:15 08/10/2023 19:39:37 Pain of right elbow joint 9270934013 1291409 M25.521 Lateral ep icondylitis of right humerus 5914538468 28877 M77.11 Health Concerns Section Related Observation LastModified by Organization Detai ls LastModified Time None Recorded Concern Status LastModified by Organization Details LastModified Time None Recorded Advance Directives Directive None Recorded Payers Encounter Date Sequence Insurance Name Policy Number Policy Miller Covered Member ID Miller Member ID Guarantor Name 07/15/2023 1 [place] [place] [place] 111 Kel Berrios [id number] Kel Dejesus Episode No OBEpisode recorded.
== END 2024-07-14 14:31 | disposition home or self-care (01) ==
LOC: HO.HCS 13:22
PROVIDERS: PCP Nurse Practitioner Family; Visit Provider Nurse Practitioner Family
DX: R55 Syncope and collapse (principal); R07.89 Other chest pain; I77.810 Thoracic aortic ectasia; R06.02 Shortness of breath
CPT/HCPCS: 93010; 99214

== ENCOUNTER 2024-07-14 17:58 | Inpatient (IN) | payer BC, SELFPAY ==
[2024-07-14] VITALS (9 sets, daily range): BP systolic 121–138; BP diastolic 52–75; PULSE 90–101; RESP 11–21; TEMP 36.8–37.2; O2SAT 98–100; BMI 28.6
--- NOTE | ~2024-07-14 | CT_ITS ---
CLINICAL HISTORY: sob CT angiogram chest/pulmonary arteries with contrast Multiplanar reconstructions and MIPS Comparison: None Findings: No filling defects are noted to suggest pulmonary embolus. Main pulmonary artery normal in caliber. Thoracic aorta normal caliber without dissection. Heart size normal. Great vessel origins patent. No coronary calcifications. No significant focal parenchymal abnormalities. No significant mediastinal or hilar adenopathy. No free pleural fluid. No acute bony abnormality noted. 4.5 cm right axillary cystic abnormality. Question postsurgical seroma. Irregular left axillary soft tissue density. Overlying irregular skin configuration noted. Question postsurgical scar. Please correlate regarding patient's surgical history. Impression: No evidence of pulmonary embolus This document has been electronically signed by: Tod No MD on 07/14/2024 20:34:57
--- NOTE | ~2024-07-14 | US_ITS ---
CLINICAL HISTORY: vaginal bleeding Transabdominal and transvaginal pelvic ultrasound Comparison: None Findings: Uterus 13.4 x 5.9 x 8.9 cm. Endometrium 1.4 cm. Lobular fibroids are noted but not measured. A 1.1 cm fibroid was measured. No significant free fluid. Right ovary 3.0 x 1.4 x 2.7 cm. 2.3 x 1.7 cm simple cyst. Left ovary was not identified. Impression: Lobular fibroids, not measured Simple cyst right ovary This document has been electronically signed by: Tod No MD on 07/14/2024 21:00:33
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
--- NOTE | 2024-07-14 18:05 | ECG_ITS ---
Test Reason : weakness Blood Pressure : */* mmHG Vent. Rate : 93 BPM Atrial Rate : 93 BPM P-R Int : 142 ms QRS Dur : 84 ms QT Int : 354 ms P-R-T Axes : 71 37 58 degrees QTcB Int : 440 ms Normal sinus rhythm Normal ECG No previous ECGs available Referred By: Nicky Ervin Electronically Signed By: KIRK HANDLEY
--- NOTE | 2024-07-14 18:36 | MHC.EDTECH ---
Patient brought in from triage area,patient changed into hospital attire, EKG taken per order and signed by provider, pt placed on the surveillance system monitor,vitals taken,labs and Type N Screen drawn and sent to lab,band applied to right wrist,nurse at bedside,call valdez in reach
[2024-07-14 18:38] LABS: MANUAL DIFF FLAG NO
[2024-07-14 18:44] LABS: INTERNATIONAL NORM RATIO 1.1 (0.9-1.1); Prothrombin Time 12.6 SEC (10.9-12.4)
[2024-07-14 18:56] LABS: Alanine Aminotransferase 8 U/L (0-31); Alkaline Phosphatase 59 U/L (39-117); Anion Gap 11 (12-20); Aspartate Amino Transferase 16 U/L (5-31); Bilirubin Total 0.4 mg/dL (0.0-1.0); Blood Urea Nitrogen 8 mg/dL (9-16); Calcium 8.6 mg/dL (8.4-10.2); Carbon Dioxide 27 mmol/L (22-29); Chloride 108 mmol/L (96-108); Creatinine Clr Calc Pharmacy 93.8; Estimated Glomerular Filt Rate > 60; Glucose Random 85 mg/dL (60-115); Potassium 2.9 mmol/L (3.3-5.1); Sodium 143 mmol/L (135-145); Total Protein 6.4 g/dL (6.5-8.0)
[2024-07-14 19:04] LABS: OBS Int Ctl Valid YES; OBS1 POSITIVE (NEGATIVE)
[2024-07-14 19:06] LABS: Basophils Percent Auto 0.3 % (0-2); Eosinophils Absolute Auto 0.1 X10*3/uL (0.0-0.4); Imm Gran Abs Auto 0.03 X10*3/uL (0.00-0.03); Imm Gran Pct Auto 0.5 % (0.0-0.4); Lymphocytes Absolute Auto 1.7 X10*3/uL (1.2-4.9); Lymphocytes Percent Auto 29.2 % (20-40); Mean Corpuscular HGB Conc 29.4 g/dl (31.0-35.0); Mean Corpuscular Hemoglobin 19.7 pg (27.0-33.0); Mean Corpuscular Volume 66.9 fL (80.0-98.0); Mean Platelet Volume 8.9 fL (9.4-12.3); Monocytes Absolute Auto 0.4 X10*3/uL (0.1-1.2); Monocytes Percent Auto 6.1 % (2-11); Neutrophils Absolute Auto 3.7 x10*3/uL (2.0-8.3); Neutrophils Percent Auto 61.9 % (45-73); Platelet Count 352 X10*3/uL (160-400); Red Blood Count 2.39 X10*6/uL (4.20-5.50); Red Cell Distribution Width 18.6 % (11.0-16.0)
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
[2024-07-14] MEDS: iohexoL 350 MG/ML 100 ML INFUS..BTL IV (19:15)
[2024-07-14 19:16] LABS: HCG Quantitative < 2 mIU/mL
[2024-07-14 19:18] LABS: Hemoglobin 4.7 g/dl (12.0-16.0)
[2024-07-14 19:25] LABS: Troponin-I High Sensitivity < 2.7 ng/L (<3.5-17.0)
[2024-07-14] MEDS: Potassium Chloride Packet 20 MEQ PACKET 40 MEQ PO ×2 (19:26→21:32)
[2024-07-14] MEDS: Potassium Chloride/H20 10 MEQ/100 ML PIGGYBACK 100 MEQ IV (19:27)
--- NOTE | 2024-07-14 19:31 | PC.NURSE ---
Took over care from Yani Jarrell, second IV placed, medicated per jun.
--- NOTE | 2024-07-14 20:23 | PC.NURSE ---
pt having bedside ultra sound during blood transfusion. pt tolerating blood transfusion well at this time.
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
--- NOTE | 2024-07-14 20:55 | PHA.MEDREC ---
Addendum entered by Jigar Reeder [facility] 07/14/24 21:07: med rec reviewed Original Note: Pharmacy Consult ? Medication Reconciliation Pharmacy has completed the medication reconciliation. Spoke with patient to confirm what she is taking. Patient confirmed she is only really taking the Wegovy 2.4mg injection once a week on Wednesdays and states she has not taken that since the first week of June. Everything else she takes are OTC medications as needed.
[2024-07-15] VITALS (13 sets, daily range): BP systolic 109–133; BP diastolic 58–79; PULSE 78–91; RESP 14–19; TEMP 36.8–37.1; O2SAT 96–99
--- NOTE | 2024-07-15 03:15 | PC.NURSE ---
pt completed third unit of blood successful. pt resting in bed.
[2024-07-15] MEDS: 0.9 % Sodium Chloride Flush 3 ML SYRINGE IVFLUSH ×2 (03:17→09:23)
--- NOTE | 2024-07-15 05:55 | PC.NURSE ---
pt resting at this time, no sign of distress, call valdez at the bedside.
[2024-07-15 06:06] LABS: Hematocrit 25.4 % (37.0-47.0); Mean Corpuscular HGB Conc 31.5 g/dl (31.0-35.0); Mean Corpuscular Hemoglobin 23.7 pg (27.0-33.0); Mean Corpuscular Volume 75.4 fL (80.0-98.0); NRBC Pct Auto 0.3 /100WBC (0.0-0.2); Platelet Count 292 X10*3/uL (160-400); Red Blood Count 3.37 X10*6/uL (4.20-5.50); White Blood Count 5.9 X10*3/uL (4.8-10.8)
[2024-07-15 06:21] LABS: Anion Gap 12 (12-20); Blood Urea Nitrogen 6 mg/dL (9-16); Calcium 8.5 mg/dL (8.4-10.2); Carbon Dioxide 24 mmol/L (22-29); Chloride 111 mmol/L (96-108); Creatinine Clr Calc Pharmacy 98.1; Estimated Glomerular Filt Rate > 60; Glucose Random 88 mg/dL (60-115); Potassium 3.6 mmol/L (3.3-5.1); Sodium 143 mmol/L (135-145)
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
--- NOTE | 2024-07-15 08:12 | PC.NURSE ---
Dr Mendoza at bedside for assessment.
[2024-07-15] MEDS: Ferrous Sulfate 324 MG TABLET.DR PO (09:22)
--- NOTE | 2024-07-15 09:23 | PC.NURSE ---
Assumed care of pt at 0700. Pt resting in bed quietly, a/ox3, respirations even and unlabored, no increased wob/sob noted, nsr on ekg monitor, denies cp, Hr- 70s, denies pain/lightheadedness/dizziness at this time. Vitals updated in worklist. Pt able to ambulate independently/make needs known. Call valdez within reach, all needs met at this time.
[2024-07-15 10:00] LABS: Bacterial Vaginosis PCR NEGATIVE (Negative); Candida Group PCR NOT DETECTED (Not Detect); Candida glab krusei PCR NOT DETECTED (Not Detect); Trichomonas vaginalis PCR NOT DETECTED (Not Detect)
[2024-07-15 10:31] LABS: CT PCR NOT DETECTED (Not Detect.); NG PCR NOT DETECTED (Not Detect.)
[2024-07-15 12:18] LABS: Hematocrit 25.9 % (37.0-47.0); Hemoglobin 8.1 g/dl (12.0-16.0); Mean Corpuscular HGB Conc 31.3 g/dl (31.0-35.0); Mean Corpuscular Hemoglobin 23.5 pg (27.0-33.0); Mean Corpuscular Volume 75.1 fL (80.0-98.0); Mean Platelet Volume 9.1 fL (9.4-12.3); NRBC Pct Auto 0.4 /100WBC (0.0-0.2); Platelet Count 297 X10*3/uL (160-400); Red Blood Count 3.45 X10*6/uL (4.20-5.50); Red Cell Distribution Width 21.6 % (11.0-16.0); White Blood Count 5.4 X10*3/uL (4.8-10.8)
--- NOTE | 2024-07-15 13:47 | P.DS_ITS ---
DS: Providers Provider Date of Service: 07/15/24 Date of admission: 07/14/24 20:53 Date of discharge: 07/15/24 Primary care physician: Unknown Physician Consults: 07/14/24 20:52 Consult to Obstetrics / Gynecology Routine Consulting Provider: Ryan Cerda Reason for consultation: menorrhagia DS: Diagnosis Discharge Diagnosis (1) Abnormal uterine bleeding: Status: Acute (2) Menorrhagia: Status: Acute (3) Acute on chronic blood loss anemia: Status: Acute (4) Symptomatic anemia: Status: Acute DS: Summary Hospital Course Hospital Course: Admission note HPI This is a 53-year-old female with pertinent history of iron-deficiency anemia who presents to the emergency department for evaluation of abnormal labs and after a syncopal episode. Patient states that about 3 days prior to presentation she was feeling fatigued and passed out while having a shower. Also has been having dyspnea with exertion which is unusual for her. Has been having malaise and difficulty with activities of daily living. Patient states her menstrual cycles started 2 weeks ago and has been very heavy and prolonged. Usually it is heavy for the 1st 3-4 days and subsides but this time she has been bleeding for the last 2 weeks. Denies melena, hematochezia, hematemesis or hematuria. Has never received blood transfusion in the past. Is on p.o. iron supplementation. No fever, chills, abdominal pain, changes in urinary or bowel habits. Patient had an appointment with outpatient Cardiology and got blood work done. Her hemoglobin was found to be low and she was sent to the ER. In the emergency department, hemoglobin found to be 4.7 and 3 unit PRBC ordered. Gynecology was consulted who will evaluate the patient in a.m. Hospital course The patient was admitted for blood transfusion for Acute symptomatic blood loss anemia due to menorrhagia with improvement of her Hb to 8.1 from 4.7 [address] presentation[address] seen by dr Cerda from Gynecology who recommended outpatient follow up in 2 days for Endometrial biopsy and placement of Mirena IUD in office. To continue Iron supplement. No more reported bleeding while inpatient. she was able to ambulate with no reported dizziness or dyspnea. Discharge plan Follow with Dr Cerda in Office for endometrial biopsy and Mirena IUD as scheduled in 2 days Come back to ED for any worsening bleeding, shortness of breath or fatigue The patient made quicker than expected recovery and will not need 2 overnight hospital stay. Time Attestation Discharge Coordination Time (in mins): 38 Quality: Safe Use of Opioids Does Pt have an Active Cancer Diagnosis on the Problem List?: No Quality: Stroke Does the patient have a stroke diagnosis?: No Physical Exam Vital Signs: Vital Signs: Last Vital Signs Temp 98.2 F 07/15/24 09:23 Pulse 78 07/15/24 10:17 Resp 18 07/15/24 10:17 BP 131/77 07/15/24 09:23 Pulse Ox 97 07/15/24 10:17 O2 Del Method Room Air 07/15/24 10:17 BMI result Body Mass Index 28.6 Const: Other: Constitutional : Awake, interactive, not in distress Neck : Normal inspection, Supple Cardiovascular : RRR, no JVP, no lower extremity edema Respiratory : good bilateral air entry, no crackles, wheezes or rhonchi Gastrointestinal: soft, lax, Normal bowel sounds, Non tender Skin : Warm, Dry Neurological : Alert & oriented x3, No focal deficit DS: Data Data Completed and Pending Labs on day of discharge: Laboratory Results - last 24 hr 07/14/24 07/14/24 07/15/24 18:34 18:53 05:49 WBC 6.0 5.9 RBC 2.39 L 3.37 L D Hgb 4.7 L* 8.0 L D Hct 16.0 L* 25.4 L D MCV 66.9 L 75.4 L D MCH 19.7 L 23.7 L MCHC 29.4 L 31.5 RDW 18.6 H 22.0 H Plt Count 352 292 MPV 8.9 L 9.0 L Immature Gran % (Auto) 0.5 H Neut % (Auto) 61.9 Lymph % (Auto) 29.2 Boundary % (Auto) 6.1 Eos % (Auto) 2.0 Baso % (Auto) 0.3 Lymph # (Auto) 1.7 Boundary # (Auto) 0.4 Eos # (Auto) 0.1 Baso # (Auto) 0.0 Abs Immat Gran (auto) 0.03 Absolute Neuts (auto) 3.7 Absolute Nucleated RBC 0.000 0.020 H Nucleated RBC % (auto) 0.0 0.3 H PT 12.6 H INR 1.1 Sodium 143 143 Potassium 2.9 L* 3.6 D Chloride 108 111 H Carbon Dioxide 27 24 Anion Gap 11 L 12 BUN 8 L 6 L Creatinine 0.68 0.65 Estim Creat Clear Calc 93.8 98.1 Estimated GFR > 60 > 60 Random Glucose 85 88 Calcium 8.6 8.5 Magnesium 2.0 Total Bilirubin 0.4 AST 16 ALT 8 Alkaline Phosphatase 59 Troponin I High Sens < 2.7 Total Protein 6.4 L Albumin 4.0 Beta HCG, Quant < 2 Stool Occult Blood POSITIVE Chlam trachomat DNA PCR N.gonorrhoeae DNA (PCR) T. vaginalis (PCR) Bact vaginosis (PCR) C. krusei/glabrata (PCR) Mena group (PCR) Blood Type O Positive Antibody Screen NEGATIVE Crossmatch See Detail 07/15/24 07/15/24 08:47 11:59 WBC 5.4 RBC 3.45 L Hgb 8.1 L Hct 25.9 L MCV 75.1 L MCH 23.5 L MCHC 31.3 RDW 21.6 H Plt Count 297 MPV 9.1 L Immature Gran % (Auto) Neut % (Auto) Lymph % (Auto) Boundary % (Auto) Eos % (Auto) Baso % (Auto) Lymph # (Auto) Boundary # (Auto) Eos # (Auto) Baso # (Auto) Abs Immat Gran (auto) Absolute Neuts (auto) Absolute Nucleated RBC 0.020 H Nucleated RBC % (auto) 0.4 H PT INR Sodium Potassium Chloride Carbon Dioxide Anion Gap BUN Creatinine Estim Creat Clear Calc Estimated GFR Random Glucose Calcium Magnesium Total Bilirubin AST ALT Alkaline Phosphatase Troponin I High Sens Total Protein Albumin Beta HCG, Quant Stool Occult Blood Chlam trachomat DNA PCR NOT DETECTED N.gonorrhoeae DNA (PCR) NOT DETECTED T. vaginalis (PCR) NOT DETECTED Bact vaginosis (PCR) NEGATIVE C. krusei/glabrata (PCR) NOT DETECTED Mena group (PCR) NOT DETECTED Blood Type Antibody Screen Crossmatch Discharge Plan Discharge Anticipated Discharge Date/Time: 07/15/24 13:44 Patient Disposition: Home, Self-Care Discharge Diagnosis: Symptomatic anemia Referrals: Physician,Unknown J [Primary Care Provider] - 1 Week Discharge Medications: Continued lidocaine 5 % adhesive patch,medicated 1 patch topical DAILY PRN (Reason: Back/Neck Pain) Rx Instructions: leave on most painful area for up to 12 hrs fluticasone propionate [Flonase Allergy Relief] 50 mcg/actuation spray,suspension 1 spray intranasal DAILY PRN (Reason: allergies) Rx Instructions: administer into each nostril ferrous sulfate 325 mg (65 mg iron) tablet 325 mg PO DAILY 30 Days Qty: 30 3RF Wegovy 2.4 mg/0.75 mL pen injector 2.4 mg subcut WE docusate sodium [Colace] 100 mg capsule 200 mg PO BEDTIME Qty: 60 5RF Discharge Orders: Discharge Order (Routine); Ordered 07/15/24 Ordered By: Lori Peña Diet: Advance to usual diet Activity on Discharge: As tolerated Stand Alone Forms: Patient Portal Discharge page Print Language: Uzbek Care Plan Goals: Follow with Dr Cerda in Office for endometrial biopsy and Mirena IUD as scheduled in 2 days Come back to ED for any worsening bleeding, shortness of breath or fatigue Health Concerns: Symptomatic anemia Plan of Treatment: Blood transfusion Gynecology follow up Assessment: as above
--- NOTE | 2024-07-15 15:03 | MHC.CM.PN ---
This CM attempted to meet with pt, pt sleeping, unable to awaken pt.
== END 2024-07-15 14:33 | disposition home or self-care (01) | DRG 532 ==
LOC: HO.ED 19:38 → HO.EDOVER 21:00
PROVIDERS: Obstetrics & Gynecology; Physician Assistant Medical; Admitting Provider Student in an Organized Health Care Education/Training Program; Emergency Provider Emergency Medicine Emergency Medical Services; Visit Provider Student in an Organized Health Care Education/Training Program
DX: N92.0 Excessive and frequent menstruation with regular cycle (principal); D62 Acute posthemorrhagic anemia; E87.6 Hypokalemia; I95.1 Orthostatic hypotension; Z79.85 Long-term (current) use of injectable non-insulin antidiabetic drugs; Z79.899 Other long term (current) drug therapy
CPT/HCPCS: 36415; 71275; 76830; 76856; 80048; 80053; 81515; 82272; 83735; 84484; 84702; 85025; 85027; 85610; 86850; 86900; 86901; 86923; 87491; 87591; 93005; 99285; J3480; P9016; Q9967

== ENCOUNTER → 2024-07-14 19:00 | Outpatient (BNV) | payer BC, SELFPAY | PROVIDERS: Admitting Provider Student in an Organized Health Care Education/Training Program; Emergency Provider Emergency Medicine Emergency Medical Services; Visit Provider Radiology Diagnostic Radiology | DX: R06.02 Shortness of breath (principal); N93.9 Abnormal uterine and vaginal bleeding, unspecified | CPT/HCPCS: 71275; 76830; 76856 ==

== ENCOUNTER → 2024-07-14 20:53 | Outpatient (BNV) | payer BC, SELFPAY | PROVIDERS: Admitting Provider Student in an Organized Health Care Education/Training Program; Emergency Provider Emergency Medicine Emergency Medical Services; Visit Provider Student in an Organized Health Care Education/Training Program | DX: R55 Syncope and collapse (principal); D64.9 Anemia, unspecified; N92.0 Excessive and frequent menstruation with regular cycle | CPT/HCPCS: 99222; 99239 ==

== ENCOUNTER → 2024-07-14 20:53 | Outpatient (BNV) | payer BC, SELFPAY | PROVIDERS: Admitting Provider Student in an Organized Health Care Education/Training Program; Emergency Provider Emergency Medicine Emergency Medical Services; Visit Provider Obstetrics & Gynecology | DX: N93.9 Abnormal uterine and vaginal bleeding, unspecified (principal) | CPT/HCPCS: 99222 ==

== ENCOUNTER 2024-07-18 08:52 | Outpatient (REF) | payer BC, SELFPAY ==
[2024-07-24 14:34] LABS: HPV Genotype 16 Negative (Negative); HPV Genotype 18 Negative (Negative); HPV High Risk Negative (Negative)
== END 2024-07-18 08:53 | disposition home or self-care (01) ==
LOC: HO.LNP 08:52
PROVIDERS: Visit Provider Obstetrics & Gynecology
DX: Z30.430 Encounter for insertion of intrauterine contraceptive device (principal); N93.9 Abnormal uterine and vaginal bleeding, unspecified; D25.9 Leiomyoma of uterus, unspecified
CPT/HCPCS: 58100; 58300; 81025; 87626; 88175; 88305; J7298

== ENCOUNTER 2024-07-18 08:52 | Outpatient (AMB) | payer BC, SELFPAY ==
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
[2024-07-18 09:03] VITALS: BP 132/100; BMI 27.8
== END 2024-07-18 09:34 | disposition home or self-care (01) ==
LOC: HO.HWS 08:52
PROVIDERS: Visit Provider Obstetrics & Gynecology
DX: N93.9 Abnormal uterine and vaginal bleeding, unspecified (principal); D25.9 Leiomyoma of uterus, unspecified; Z32.02 Encounter for pregnancy test, result negative; Z30.430 Encounter for insertion of intrauterine contraceptive device
CPT/HCPCS: 58100; 58300; 99214; 99459

== ENCOUNTER 2024-07-18 09:45 | Outpatient (REF) | payer BC, SELFPAY ==
[2024-07-18 10:34] LABS: Hematocrit 30.9 % (37.0-47.0); Hemoglobin 9.7 g/dl (12.0-16.0); Mean Corpuscular HGB Conc 31.4 g/dl (31.0-35.0); Mean Corpuscular Hemoglobin 23.4 pg (27.0-33.0); Mean Corpuscular Volume 74.5 fL (80.0-98.0); Platelet Count 357 X10*3/uL (160-400); Red Blood Count 4.15 X10*6/uL (4.20-5.50); Red Cell Distribution Width 23.3 % (11.0-16.0); White Blood Count 6.8 X10*3/uL (4.8-10.8)
--- OUTSIDE RECORDS SUMMARY | 2024-07-18 11:13 | XMS_ITS | Data Portability ---
Author Organization [facility], [facility] Address [address] [place] [address] Assessment Encounter Date Assessment Date Assessment LastModified [...] grossly intact. Eyes: Sclera are not blue. adobe maker II-XII are grossly intact. Full extraocular motion. [...] Imaging: X-rays ordered, obtained and reviewed at [facility]. These images included 3 views of the [...] visit note. This note was generated with [facility] speech recognition supervisor counseling and guidance dictation software. Please excuse any errors that may have been overlooked during review of this note. Sometimes, these errors may affect the content or meaning of a given sentence. Please call for corrections. [email or web address] Not available 07/15/2023 11:41:10 Plan of Treatment Reminders Order Date Submit Date Provider Last Modified By Organization Details Last Modified Time Details Appointments None record ed. Lab None record ed. Referral None record ed. Procedures None record ed. Surgeries None record ed. Imaging XR, elbow, 2 view 024 07/15/19 24 [email or web address] Not available 4 13:04:31 Medication Orders None record ed. Patient TargetsNo targets recorded. Patient InstructionsNo instructions recorded. Reason for Referral None Reported. Procedures Surgical History Date Name Laterality Status Provider Name and Address Organization Details Recorded Time 4 Elbow Kenalog 1cc Injection, L/R completed Jeff[facility] Soler [facility] [address], [address], [facility] 07/15/2023 11:43:49 Imaging Results None recorded. [...] Updated DateTime 07/15/2023 160.02 cm 33.7 kg/m2 03464.55 g Diana Mcmahan [facility] 07/15/2023 10:36:18 Social History None recorded. Functional Status None recorded. Mental Status None recorded. Family History Nothing Reported. Medical History No medical history recorded. Gynecological HistoryNo gynecological history recorded. Obstetrics History GPAL:G 0 P 0 0 0 0 Past Encounters Encounter ID Performer Location Encounter Start Date Encounter Closed Date Diagnosis/Indication Diagnosis SNOMED-CT Code Diagnosis ICD10 Code Diagnosis Note [id number] Jeffery Soler MD [facility] 2nd floor [address] [place] [address] 07/15/2023 10:26:15 08/10/2023 19:39:37 Pain of right elbow joint 5732623097 2992391 M25.521 Lateral ep icondylitis of right humerus 9447622125 12511 M77.11 Health Concerns Section Related Observation LastModified by Organization Detai ls LastModified Time None Recorded Concern Status LastModified by Organization Details LastModified Time None Recorded Advance Directives Directive None Recorded Payers Encounter Date Sequence Insurance Name Policy Number Policy Miller Covered Member ID Miller Member ID Guarantor Name 07/15/2023 1 [place] [employer] [place] [place] [id number] Kel Berrios [id number] Kel Dejesus Episode No OBEpisode recorded.
[2024-07-18 11:21] LABS: HCG Quantitative < 2 mIU/mL
[2024-07-19 03:03] LABS: Lutenizing Hormone 6.6 mIU/mL
== END 2024-07-18 09:46 | disposition home or self-care (01) ==
LOC: HO.LAB 09:45
PROVIDERS: PCP Nurse Practitioner Family; Visit Provider Obstetrics & Gynecology
DX: N93.9 Abnormal uterine and vaginal bleeding, unspecified (principal)
CPT/HCPCS: 36415; 83001; 83002; 84702; 85027

== ENCOUNTER 2024-07-25 15:28 | Outpatient (AMB) | payer BC, SELFPAY ==
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
[2024-07-25 15:34] VITALS: BP 142/66; PULSE 95; RESP 16; TEMP 36.7; O2SAT 99; BMI 27.1
[2024-07-25 16:03] VITALS: BP 126/80
--- OUTSIDE RECORDS SUMMARY | 2024-07-25 18:35 | XMS_ITS | Data Portability ---
Author Organization [facility], [facility] Address [address] [place] [address] Assessment Encounter Date Assessment Date Assessment LastModified [...] grossly intact. Eyes: Sclera are not blue. 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 Full extraocular motion. [...] Imaging: X-rays ordered, obtained and reviewed at [facility]. These images included 3 views of [...] visit note. This note was generated with [facility] speech recognition waiver analyst dictation software. Please excuse any errors that may have been overlooked during review of this note. Sometimes, these errors may affect the content or meaning of a given sentence. Please call for corrections. [email or web address] Not available 07/15/2023 11:41:10 Plan of Treatment Reminders Order Date Submit Date Provider Last Modified By Organization Details Last Modified Time Details Appointments None record ed. Lab None record ed. Referral None record ed. Procedures None record ed. Surgeries None record ed. Imaging XR, elbow, 2 view 024 07/15/19 24 [email or web address] Not available 4 13:04:31 Medication Orders None record ed. Patient TargetsNo targets recorded. Patient InstructionsNo instructions recorded. Reason for Referral None Reported. Procedures Surgical History Date Name Laterality Status Provider Name and Address Organization Details Recorded Time 4 Elbow Kenalog 1cc Injection, L/R completed Jeffery Soler [facility] [address] [facility] [address], [address], [facility] 07/15/2023 11:43:49 Imaging Results None recorded. Procedure [...] Updated DateTime 07/15/2023 160.02 cm 33.7 kg/m2 75896.55 g Diana Mcmahan [facility] 07/15/2023 10:36:18 Social History None recorded. Functional Status None recorded. Mental Status None recorded. Family History Nothing Reported. Medical History No medical history recorded. Gynecological HistoryNo gynecological history recorded. Obstetrics History GPAL:G 0 P 0 0 0 0 Past Encounters Encounter ID Performer Location Encounter Start Date Encounter Closed Date Diagnosis/Indication Diagnosis SNOMED-CT Code Diagnosis ICD10 Code Diagnosis Note [id number] Jeffery Soler MD [facility] 2nd floor [address] [place] [address] 07/15/2023 10:26:15 08/10/2023 19:39:37 Pain of right elbow joint 5771806961 6315522 M25.521 Lateral ep icondylitis of right humerus 8787875417 75255 M77.11 Health Concerns Section Related Observation LastModified by Organization Detai ls LastModified Time None Recorded Concern Status LastModified by Organization Details LastModified Time None Recorded Advance Directives Directive None Recorded Payers Encounter Date Sequence Insurance Name Policy Number Policy Miller Covered Member ID Miller Member ID Guarantor Name 07/15/2023 1 [place] 111 Kel Berrios [id number] Kel Dejesus Episode No OBEpisode recorded.
== END 2024-07-25 16:10 | disposition home or self-care (01) ==
LOC: HO.HMCFM 15:28
PROVIDERS: Visit Provider Nurse Practitioner Family
DX: D62 Acute posthemorrhagic anemia (principal); D50.9 Iron deficiency anemia, unspecified; R53.83 Other fatigue

== ENCOUNTER → 2024-07-25 15:28 | Outpatient (BNVA) | payer BC, SELFPAY | PROVIDERS: Visit Provider Nurse Practitioner Family | DX: Z13.89 Encounter for screening for other disorder (principal) ==

== ENCOUNTER 2024-07-25 16:05 | Outpatient (REF) | payer BC, SELFPAY ==
[2024-07-25 18:31] LABS: Hematocrit 28.9 % (37.0-47.0); Mean Corpuscular HGB Conc 31.1 g/dl (31.0-35.0); Mean Corpuscular Hemoglobin 23.9 pg (27.0-33.0); Mean Corpuscular Volume 76.7 fL (80.0-98.0); Mean Platelet Volume 9.4 fL (9.4-12.3); Platelet Count 363 X10*3/uL (160-400); Red Blood Count 3.77 X10*6/uL (4.20-5.50); Red Cell Distribution Width 24.8 % (11.0-16.0); White Blood Count 10.7 X10*3/uL (4.8-10.8)
[2024-07-25 18:58] LABS: Iron 18 mcg/dL (30-160); Percent Iron Saturation 5 % (15-50); Total Iron Binding Capacity 375 mcg/dL (228-428); Unsaturated Iron Binding 357 ug/dL
[2024-07-25 19:12] LABS: Ferritin 24 ng/mL (10-250)
[2024-07-25 19:25] LABS: Folate 8.1 ng/mL (> or = 4.0); Vitamin B12 478 pg/mL (200-900)
== END 2024-07-25 16:06 | disposition home or self-care (01) ==
LOC: HO.WFDLDS 16:05
PROVIDERS: Visit Provider Nurse Practitioner Family
DX: D50.9 Iron deficiency anemia, unspecified (principal)
CPT/HCPCS: 36415; 82607; 82728; 82746; 83540; 85027

== ENCOUNTER 2024-08-07 13:03 | Outpatient (REF) | payer BC, SELFPAY ==
--- NOTE | ~2024-08-07 | US_ITS ---
CLINICAL HISTORY: N93.9 - Abnormal uterine and vaginal bleeding, unspecified US pelvis transabdominal and transvaginal with Doppler Comparison: None Findings: Transabdominal scanning performed for overall anatomy. Transvaginal scanning performed for additional detail. Anteverted uterus is 13.0 cm length. 11 mm uterine fibroid. An intrauterine device is present, Suboptimally visualized. Right ovary 2.8 x 1.7 x 1.7 cm. Exophytic 10 mm cyst. Left ovary 4.0 x 2.8 x 3.1 cm. Complex 31 mm cyst. Normal color Doppler with arterial/venous spectral tracing of both ovaries. No free fluid. IMPRESSION: 1. Normal pelvic ultrasound with Doppler. No evidence of ovarian torsion. This document has been electronically signed by: Osmin Mcneal MD on 08/07/2024 17:41:19
[2024-08-07 13:23] LABS: Hematocrit 34.3 % (37.0-47.0); Hemoglobin 10.4 g/dl (12.0-16.0); Mean Corpuscular HGB Conc 30.3 g/dl (31.0-35.0); Mean Corpuscular Hemoglobin 23.9 pg (27.0-33.0); Mean Corpuscular Volume 78.9 fL (80.0-98.0); Mean Platelet Volume 9.4 fL (9.4-12.3); Platelet Count 503 X10*3/uL (160-400); Red Blood Count 4.35 X10*6/uL (4.20-5.50); Red Cell Distribution Width 24.2 % (11.0-16.0); White Blood Count 12.3 X10*3/uL (4.8-10.8)
--- OUTSIDE RECORDS SUMMARY | 2024-08-07 15:35 | XMS_ITS | Data Portability ---
Author Organization [facility], [facility] Address [address] [place] [address] Assessment Encounter Date Assessment Date Assessment LastModified [...] grossly intact. Eyes: Sclera are not blue. veterans' counselor II-XII are grossly intact. Full extraocular motion. [...] Imaging: X-rays ordered, obtained and reviewed at [facility]. These images included 3 views of [...] visit note. This note was generated with [facility] speech recognition harness rigger dictation software. Please excuse any errors that [...] XR, elbow, 2 view 024 07/15/19 24 [email or web address] Not available 4 13:04:31 Medication Orders None record ed. Patient TargetsNo targets recorded. Patient InstructionsNo instructions recorded. Reason for Referral None Reported. Procedures Surgical History Date Name Laterality Status Provider Name and Address Organization Details Recorded Time 4 Elbow Kenalog 1cc Injection, L/R completed Jeffery Soler MD [address] [facility] [address], [address], [facility] 07/15/2023 11:43:49 Imaging Results None [...] Updated DateTime 07/15/2023 160.02 cm 33.7 kg/m2 28170.55 g Diana Mcmahan [facility] 07/15/2023 10:36:18 Social History None recorded. Functional Status None recorded. Mental Status None recorded. Family History Nothing Reported. Medical History No medical history recorded. Gynecological HistoryNo gynecological history recorded. Obstetrics History GPAL:G 0 P 0 0 0 0 Past Encounters Encounter ID Performer Location Encounter Start Date Encounter Closed Date Diagnosis/Indication Diagnosis SNOMED-CT Code Diagnosis ICD10 Code Diagnosis Note [id number] Jeffery Soler MD [facility] 2nd floor [address] [place] [address] 07/15/2023 10:26:15 08/10/2023 19:39:37 Pain of right elbow joint [id number] M25.521 Lateral ep icondylitis of right humerus 5017201479 04855 M77.11 Health Concerns Section Related Observation LastModified by Organization Detai ls LastModified Time None Recorded Concern Status LastModified by Organization Details LastModified Time None Recorded Advance Directives Directive None Recorded Payers Encounter Date Sequence Insurance Name Policy Number Policy Miller Covered Member ID Miller Member ID Guarantor Name 07/15/2023 1 [place] [place] 111 Kel Berrios [id number] Kel Dejesus Episode No OBEpisode recorded.
== END 2024-08-07 13:04 | disposition home or self-care (01) ==
LOC: HO.LAB 13:03
PROVIDERS: PCP Nurse Practitioner Family; Visit Provider Obstetrics & Gynecology
DX: N93.9 Abnormal uterine and vaginal bleeding, unspecified (principal); N83.202 Unspecified ovarian cyst, left side; N83.201 Unspecified ovarian cyst, right side
CPT/HCPCS: 36415; 76830; 76856; 85027

== ENCOUNTER 2024-08-07 14:35 | Outpatient (AMB) | payer BC, SELFPAY ==
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
== END 2024-08-07 15:55 | disposition home or self-care (01) ==
LOC: HO.HWS 14:35
PROVIDERS: PCP Nurse Practitioner Family; Visit Provider Obstetrics & Gynecology
DX: N93.9 Abnormal uterine and vaginal bleeding, unspecified (principal)
CPT/HCPCS: 99213

== ENCOUNTER → 2024-08-07 16:06 | Outpatient (BNV) | payer BC, SELFPAY | PROVIDERS: PCP Nurse Practitioner Family; Visit Provider Radiology Diagnostic Radiology | DX: N93.9 Abnormal uterine and vaginal bleeding, unspecified (principal) | CPT/HCPCS: 76830; 76856 ==

== ENCOUNTER 2024-08-14 12:25 | Outpatient (AMB) | payer BC, SELFPAY ==
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
== END 2024-08-14 13:38 | disposition home or self-care (01) ==
LOC: HO.HWS 12:25
PROVIDERS: PCP Nurse Practitioner Family; Visit Provider Obstetrics & Gynecology
DX: N93.9 Abnormal uterine and vaginal bleeding, unspecified (principal)
CPT/HCPCS: 99213

== ENCOUNTER → 2024-08-14 12:25 | Outpatient (BNVA) | payer BC, SELFPAY | PROVIDERS: PCP Nurse Practitioner Family; Visit Provider Obstetrics & Gynecology ==

== ENCOUNTER 2024-08-15 10:00 | Outpatient (REF) | payer BC, SELFPAY ==
--- NOTE | ~2024-08-15 | US_ITS ---
EXAMINATION: US PELVIS TRANSABDOMINAL AND TRANSVAGINAL HISTORY: N93.9 - Abnormal uterine and vaginal bleeding, unspecified COMPARISON: Comparison is made with the prior examination dated 07/30/2024 TECHNIQUE: Transabdominal and endovaginal real-time 2D bain-scale ultrasound was performed. FINDINGS: Uterus: The uterus is enlarged, measuring 15.0 x 7.0 x 8.5 cm. Myometrium has a heterogeneous echotexture. No discrete fibroids are identified on the current study. Endometrium: The endometrial stripe measures 19 mm in thickness. An IUD is partially visualized, but does not appear in the expected orientation. Right ovary: The right ovary measures 1.9 x 1.4 x 1.7 cm. The right ovary is normal in size and echotexture. Left ovary: The left ovary measures 3.6 x 3.0 x 2.9 cm. There is a 3.3 x 2.5 x 3.0 cm ovarian simple cyst. Pelvic fluid: none. US/US pelvic and transvaginal IMPRESSION: 1. Enlarged, heterogeneous appearing uterus. No discrete fibroid is seen on the current study. 2. Thickened endometrial stripe measuring 19 mm. 3. Portions of an IUD are identified which does not appear in the expected orientation in the endometrial canal. Evaluation is limited. 4. 3.3 x 2.5 x 3.0 cm left ovarian cyst. Electronically signed by: Colin Ramos MD 08/15/2024 10:49 AM EDT
[2024-08-15 10:52] LABS: Hematocrit 31.6 % (37.0-47.0); Mean Corpuscular HGB Conc 31.6 g/dl (31.0-35.0); Mean Corpuscular Hemoglobin 24.8 pg (27.0-33.0); Mean Corpuscular Volume 78.4 fL (80.0-98.0); Mean Platelet Volume 8.7 fL (9.4-12.3); Platelet Count 415 X10*3/uL (160-400); Red Blood Count 4.03 X10*6/uL (4.20-5.50); Red Cell Distribution Width 22.6 % (11.0-16.0); White Blood Count 6.2 X10*3/uL (4.8-10.8)
[2024-08-15 11:17] LABS: Iron 15 mcg/dL (30-160); Percent Iron Saturation 4 % (15-50); Total Iron Binding Capacity 361 mcg/dL (228-428); Unsaturated Iron Binding 346 ug/dL
[2024-08-15 11:32] LABS: Ferritin 12 ng/mL (10-250)
[2024-08-15 11:43] LABS: HCG Quantitative < 2 mIU/mL
== END 2024-08-15 10:01 | disposition home or self-care (01) ==
LOC: HO.US 10:00
PROVIDERS: PCP Nurse Practitioner Family; Visit Provider Obstetrics & Gynecology
DX: N93.9 Abnormal uterine and vaginal bleeding, unspecified (principal); D50.9 Iron deficiency anemia, unspecified
CPT/HCPCS: 36415; 76830; 76856; 82728; 83540; 84702; 85027

== ENCOUNTER → 2024-08-15 10:05 | Outpatient (BNV) | payer BC, SELFPAY | PROVIDERS: PCP Nurse Practitioner Family; Visit Provider Radiology Diagnostic Radiology | DX: N93.9 Abnormal uterine and vaginal bleeding, unspecified (principal) | CPT/HCPCS: 76830; 76856 ==

== ENCOUNTER 2024-08-16 15:12 | Outpatient (AMB) | payer BC, SELFPAY ==
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
[2024-08-16 15:29] VITALS: BMI 27.1
== END 2024-08-16 15:48 | disposition home or self-care (01) ==
LOC: HO.HWS 15:12
PROVIDERS: PCP Nurse Practitioner Family; Visit Provider Obstetrics & Gynecology
DX: N93.9 Abnormal uterine and vaginal bleeding, unspecified (principal); T83.32XA Displacement of intrauterine contraceptive device, initial encounter; Z30.433 Encounter for removal and reinsertion of intrauterine contraceptive device; Z32.02 Encounter for pregnancy test, result negative
CPT/HCPCS: 58300; 58301

== ENCOUNTER → 2024-08-16 15:12 | Outpatient (BNVA) | payer BC, SELFPAY | PROVIDERS: PCP Nurse Practitioner Family; Visit Provider Obstetrics & Gynecology | DX: T83.32XA Displacement of intrauterine contraceptive device, initial encounter (principal); N93.9 Abnormal uterine and vaginal bleeding, unspecified | CPT/HCPCS: 58300; 58301; 81025; J7298 ==

== ENCOUNTER → 2024-08-28 14:02 | Outpatient (BNV) | payer BC, SELFPAY | PROVIDERS: PCP Nurse Practitioner Family; Referring Provider Nurse Practitioner Family; Visit Provider Internal Medicine | DX: D50.9 Iron deficiency anemia, unspecified (principal) | CPT/HCPCS: 99204 ==

== ENCOUNTER → 2024-09-01 08:05 | Outpatient (REF) | payer BC, SELFPAY ==
--- NOTE | 2024-09-01 08:08 | CA_ITS ---
Transthoracic Echocardiogram Patient (Last, First, Middle): Kel Berrios, Gender: Female Date of : 1970 Age: 53 Procedure Date: 09/01/2024 Procedure Type: Transthoracic Echocardiogram Location: OP Height: 160.02 cm Weight: 72.58 kg BSA: 1.76 m2 Heart Rate: bpm BP: 116 / 60 mmHg Poker Manager: ADWOA Referring MD: Maria Teresa Real [employer] INSPECTORDangelo Symptoms: R55 - Syncope and collapse Study Quality: Good ECG Rhythm: Sinus Conclusions: - Normal left ventricular size and systolic function. There is moderately increased left ventricular wall thickness. The visually estimated ejection fraction is between 55-60%. - E/E prime ratio is between 8 and 15 consistent with indeterminate filling pressures. - The basal inferior segment is akinetic. - Normal right ventricular cavity size and systolic function. - There is mild dilatation of the ascending aorta measuring 3.80 cm. Findings Left Ventricle Normal left ventricular size and systolic function. There is moderately increased left ventricular wall thickness. The visually estimated ejection fraction is between 55-60%. There is evidence of regional wall motion abnormalities. Abnormal diastolic function is noted. Spectral Doppler is indicative of an impaired relaxation filling pattern. E/E prime ratio is between 8 and 15 consistent with indeterminate filling pressures. Wall Motion Rest Echo Findings The basal inferior segment is akinetic. Right Ventricle Normal right ventricular cavity size and systolic function. Atria The left atrium is mildly dilated. The right atrium is likely dilated. Aortic Valve Normal aortic valve structure and function. There is no aortic valve stenosis. There is no aortic valve regurgitation. Mitral Valve The mitral valve appears normal. There is no mitral valve regurgitation. There is no mitral valve stenosis. Pulmonic Valve The pulmonic valve is likely normal. Tricuspid Valve Normal tricuspid valve structure. There is trace tricuspid valve regurgitation. Normal right atrial pressure. There is no evidence of pulmonary hypertension. Great Vessels There is mild dilatation of the ascending aorta measuring 3.80 cm. The visualized portions of the pulmonary artery and branches are normal. Venous The inferior vena cava is normal in size and collapses greater than 50% with inspiration. Pericardium/Pleural There is no evidence of pericardial effusion. Prior Study Comparison Changes noted compared to prior study dated: 04/26/2024. Basal inferior akinesis. Measurements 2D Linear Measurements IVSd: 1.20 0.6-0.9/0.6-1.0 cm LVIDd: 3.88 3.9-5.3/4.2-5.9 cm LVIDd Index: 2.20 2.4-3.2/2.2-3.1 cm/m2 LVIDs: 2.70 2.0-3.6 cm LVPWd: 1.22 0.7-1.1 cm Ao Root: 3.60 2.1-3.5 cm LA Diam: 3.30 2.7-3.8/3.0-4.0 cm LAIDs Index: 1.88 1.5-2.3 cm/m2 LV Mass: 199.30 67-162/88-224 g LV Mass Index: 113.24 43-95/49-115 g/m2 LVOT Diam: 2.00 3.0+(-)1.3 cm 2D Systolic Function EF 4C: 55.80 >55% EF 2C: 56.40 >55% EF BiP: 57.00 >55% Mitral Valve MV Pk E: 0.66 MV PK A: 0.89 MV Decel Time: 96.00 E/A: 0.70 E'Lateral: 5.00 E'Medial: 4.90 E/E' Med: 13.50 E/E' Lat: 13.20 PHT: 28.00 MVA PHT: 7.86 Decel Haralson: 6.89 Aortic Valve AoV Pk Joseph: 1.46 AoV Mn Joseph: 1.05 AoV VTI: 0.29 AoV Pk Grad: 9.00 Aov Mn Grad: 5.00 NAYA Cont.VTI: 2.27 LVOT LVOT Pk Joseph: 0.93 LVOT Mn Joseph: 0.66 LVOT VTI: 0.21 LVOT Pk Grad: 3.00 LVOT Mn Grad: 2.00 LVOT Diam: 2.00 LVOT Area: 3.14 Diastolic Function MV Pk E: 0.66 MV Pk A: 0.89 E/A: 0.70 E'Medial: 4.90 E/E' Med: 13.50 E' Laterial: 5.00 E/E' Lat: 13.20 Right Ventricle TAPSE (mm): 29.00 TVS' Joseph: 13.00 Tricuspid Valve TR Pk Joseph: 1.79 TR Pk Grad: 13.00 RA Press: 3.00 RVSP: 16.00 Great Vessels Aorta Ao Root-2D: 3.60 2.0-3.7 cm Ao Asc: 3.80 2.1-3.4 cm Pulmonary Valve PV Pk Joseph: 0.76 Peak PV Grad: 2.00 Updated in Other Vendor System with Status of Final Juve Blue MD electronically signed on 09/03/2024 10:19:53 PM with status of Final
== END ==
LOC: HO.CARD 08:05
PROVIDERS: PCP Nurse Practitioner Family; Visit Provider Nurse Practitioner Family
DX: R07.89 Other chest pain (principal); R55 Syncope and collapse; R06.02 Shortness of breath
CPT/HCPCS: 93306

== ENCOUNTER → 2024-09-01 08:08 | Outpatient (BNV) | payer BC, SELFPAY | PROVIDERS: PCP Nurse Practitioner Family; Visit Provider Internal Medicine Cardiovascular Disease | DX: I51.7 Cardiomegaly (principal); I51.89 Other ill-defined heart diseases; R55 Syncope and collapse | CPT/HCPCS: 93306 ==

== ENCOUNTER 2024-09-28 10:07 | Outpatient (AMB) | payer BC, SELFPAY ==
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
[2024-09-28 10:31] VITALS: BP 132/80
--- OUTSIDE RECORDS SUMMARY | 2024-09-28 11:24 | XMS_ITS | Data Portability ---
Author Organization [facility], [facility] Address [address] [place] [address] Assessment Encounter Date Assessment Date Assessment LastModified [...] grossly intact. Eyes: Sclera are not blue. 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 Full extraocular motion. Neck: Supple with age-appropriate ROM. No tracheal deviation. No obvious JVD. Respiratory: Non-labored breathing. Symmetric excursion. No audible wheezing or crackles. Skin: No rashes, lesions, wounds to the upper extremities. Normal turgor and coloration. Musculoskeletal: On examination of the right elbow, there is no effusion, erythema or ecchymosis. Range of motion from 0-135 . She has full pronosupination. Her elbow is stable to varus and valgus stress. Distal biceps and distal triceps intact. She has point tenderness directly over the common extensor origin at the lateral epicondyle. Imaging: X-rays ordered, obtained and reviewed at [facility]. These images included 3 views of [...] visit note. This note was generated with [facility] speech recognition land survey technician dictation software. Please excuse any errors that may have been overlooked during review of this note. Sometimes, these errors may affect the content or meaning of a given sentence. Please call for corrections. [email or web address] Not available 07/15/2023 11:41:10 Plan of Treatment Reminders Order Date Submit Date Provider Last Modified By Organization Details Last Modified Time Details Appointments None record ed. Lab None record ed. Referral None record ed. Procedures None record ed. Surgeries None record ed. Imaging XR, elbow, 2 view 024 07/15/19 24 [email or web address] Not available 4 13:04:31 Medication Orders None record ed. Patient TargetsNo targets recorded. Patient InstructionsNo instructions recorded. Reason for Referral None Reported. Procedures Surgical History Date Name Laterality Status Provider Name and Address Organization Details Recorded Time 4 Elbow Kenalog 1cc Injection, L/R completed [facility] Sol[facility] [address], [address], [facility] 07/15/2023 11:43:49 Imaging Results None [...] Updated DateTime 07/15/2023 160.02 cm 33.7 kg/m2 93336.55 g Diana Mcmahan [facility] 07/15/2023 10:36:18 Social History None recorded. Functional Status None recorded. Mental Status None recorded. Family History Nothing Reported. Medical History No medical history recorded. Gynecological HistoryNo gynecological history recorded. Obstetrics History GPAL:G 0 P 0 0 0 0 Past Encounters Encounter ID Performer Location Encounter Start Date Encounter Closed Date Diagnosis/Indication Diagnosis SNOMED-CT Code Diagnosis ICD10 Code Diagnosis Note [id number] Jeffery Soler MD [facility] 2nd floor [address] [place] [address] 07/15/2023 10:26:15 08/10/2023 19:39:37 Pain of right elbow joint 1351581945 [id number] M25.521 Lateral ep icondylitis of right humerus 7072273720 30062 M77.11 Health Concerns Section Related Observation LastModified by Organization Detai ls LastModified Time None Recorded Concern Status LastModified by Organization Details LastModified Time None Recorded Advance Directives Directive None Recorded Payers Insurance Date Sequence Insurance Name Policy Number Policy Miller Covered Member ID Miller Member ID Guarantor Name 08/10/2023 1 [facility]: [employer]PL[employer] PROGRAM (PPO) 111 Kel Berrios [id number] Aidcarmelo Berrios OBGyn Episode No OBEpisode recorded.
== END 2024-09-28 10:40 | disposition home or self-care (01) ==
LOC: HO.HWS 10:07
PROVIDERS: PCP Nurse Practitioner Family; Visit Provider Obstetrics & Gynecology
DX: Z30.431 Encounter for routine checking of intrauterine contraceptive device (principal)
CPT/HCPCS: 99213

== ENCOUNTER → 2024-09-28 10:07 | Outpatient (BNVA) | payer BC, SELFPAY | PROVIDERS: PCP Nurse Practitioner Family; Visit Provider Obstetrics & Gynecology ==

== ENCOUNTER 2024-11-02 11:23 | Outpatient (REF) | payer BC, SELFPAY ==
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
--- OUTSIDE RECORDS SUMMARY | 2024-11-02 12:21 | XMS_ITS | Data Portability ---
Author Organization [facility], [facility] Address [address] [place] [address] Assessment Encounter Date Assessment Date Assessment LastModified [...] grossly intact. Eyes: Sclera are not blue. hourly team members II-XII are grossly intact. Full extraocular motion. [...] Imaging: X-rays ordered, obtained and reviewed at [facility]. These images included 3 views of [...] visit note. This note was generated with [facility] [employer] [facility] speech recognition clinical services director dictation software. Please excuse any errors that may have been overlooked during review of this note. Sometimes, these errors may affect the content or meaning of a given sentence. Please call for corrections. nav Not available 07/15/2023 11:41:10 Plan of Treatment Reminders Order Date Submit Date Provider Last Modified By Organization Details Last Modified Time Details Appointments None record ed. Lab None record ed. Referral None record ed. Procedures None record ed. Surgeries None record ed. Imaging XR, elbow, 2 view 024 07/15/19 24 Not available 4 13:04:31 Medication Orders None record ed. Patient TargetsNo targets recorded. Patient InstructionsNo instructions recorded. Reason for Referral None Reported. Procedures Surgical History Date Name Laterality Status Provider Name and Address Organization Details Recorded Time 4 Elbow Kenalog 1cc Injection, L/R completed Jeff[facility] Soler [facility] [address] [facility] [place] [address], [place], [address], [facility] 07/15/2023 11:43:49 Imaging Results None [...] Updated DateTime 07/15/2023 160.02 cm 33.7 kg/m2 08337.55 g Diana Martir [facility] 07/15/2023 10:36:18 Social History None recorded. Functional Status None recorded. Mental Status None recorded. Family History Nothing Reported. Medical History No medical history recorded. Gynecological HistoryNo gynecological history recorded. Obstetrics History GPAL:G 0 P 0 0 0 0 Past Encounters Encounter ID Performer Location Encounter Start Date Encounter Closed Date Diagnosis/Indication Diagnosis SNOMED-CT Code Diagnosis ICD10 Code Diagnosis Note [id number] Jeffery Soler MD [facility] [place] 2nd floor [address] [place], [place] [address] 07/15/2023 10:26:15 08/10/2023 19:39:37 Pain of right elbow joint [id number] 1936796 M25.521 Lateral ep icondylitis of right humerus [id number] 59286 M77.11 Health Concerns Section Related Observation LastModified by Organization Detai ls LastModified Time None Recorded Concern Status LastModified by Organization Details LastModified Time None Recorded Advance Directives Directive None Recorded Payers Insurance Date Sequence Insurance Name Policy Number Policy Miller Covered Member ID Miller Member ID Guarantor Name 08/10/2023 1 [employer]GRAM (PPO) 111 Kel Berrios [id number] Kel Berrios OBGyn Episode No OBEpisode recorded.
== END 2024-11-02 11:24 | disposition home or self-care (01) ==
LOC: HO.MAMMO 11:23
PROVIDERS: Absent Provider Obstetrics & Gynecology; PCP Nurse Practitioner Family; Visit Provider Nurse Practitioner Family
DX: Z12.31 Encounter for screening mammogram for malignant neoplasm of breast (principal)
CPT/HCPCS: 77063; 77067

== ENCOUNTER → 2024-11-02 12:15 | Outpatient (BNV) | payer BC, SELFPAY | PROVIDERS: Absent Provider Obstetrics & Gynecology; PCP Nurse Practitioner Family; Visit Provider Internal Medicine | DX: Z12.31 Encounter for screening mammogram for malignant neoplasm of breast (principal) | CPT/HCPCS: 77063; 77067 ==

== ENCOUNTER 2024-12-14 14:05 | Outpatient (AMB) | payer BC, SELFPAY ==
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
--- OUTSIDE RECORDS SUMMARY | 2024-12-14 15:23 | XMS_ITS | Clinical Summary ---
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 Role Phone Unavailable Primary Care Provider [...] annual influenza vaccination at work at the [employer] Screening, lipid 06/16/2021 Paresthesias 06/06/2021 Trigger middle [...] PM EDT) HCV NON-REACTIV E NON-REACTI VE [facility] Blood 06/23/2021 12:0 5 PM EDT 06/23/2021 12:07 PM EDT us Roxy Harris MD LAB BLOOD ORDERABLES Final Result Performing Organization Address [facility] Co de Phone Number [address] [address] * Lipid panel (06/23/2021 12:05 PM EDT) HDL 53 mg/dL [facility] Comment: Interpretation <40 mg/dL: Low HDL cholesterol (major risk factor for CHD) Greater than or equal to 60 mg/dL: High HDL cholesterol ( negative risk factor for CHD) HDL - cholesterol is affected by a number of factors, e.g. smoking, excerise, hormones, sex and age. CHOLESTEROL 181 0 - 240 mg/dL [facility] TRIGLYCERIDES 93 30 - 160 mg/dL [facility] LDL 109 50 - 129 mg/dL [facility] Comment: LDL levels in terms of risk for coronary heart disease: <100 mg/dL: Optimal 100-129 mg/dL: Near or above optimal 130-159 mg/dL: Borderline high 160-189 mg/dL: High >190 mg/dL: Very High CARDIAC RISK RATIO 3.4 3.3 - 4.4 C [facility] Blood 06/23/2021 12:0 5 PM EDT 06/23/2021 12:07 PM EDT us Roxy Harris MD LAB BLOOD ORDERABLES Final Result Performing Organization Address City/[facility] Co de Phone Number [address] [address] from Last 3 Months or Most Recently Relevant to Health Maintenance Insurance [facility] FEDERAL [employer] [facility] Additional Source Comments The information contained in this document represents components of the legal health record. It is not the complete legal health record.[facility]
== END 2024-12-14 14:28 | disposition home or self-care (01) ==
LOC: HO.HWS 14:05
PROVIDERS: PCP Nurse Practitioner Family; Visit Provider Obstetrics & Gynecology
DX: Z32.02 Encounter for pregnancy test, result negative (principal); R10.2 Pelvic and perineal pain
CPT/HCPCS: 99213

== ENCOUNTER 2024-12-14 14:40 | Outpatient (REF) | payer BC, SELFPAY ==
--- NOTE | ~2024-12-14 | US_ITS ---
EXAMINATION: US PELVIS CLINICAL INFORMATION: D25.9 - Leiomyoma of uterus, follow-up, history of tubal ligation, and , postmenopausal COMPARISON: August 15 and July 14, 2024 TECHNIQUE: Ultrasound of the pelvis is performed using both transabdominal and transvaginal transducers along with Doppler. Transvaginal imaging is performed due to inadequate visualization transabdominally. FINDINGS: Uterus: The uterus is retroflexed and measures 13 x 7 x 9 cm. It has a heterogeneous echotexture. In the upper anterior myometrium there is a heterogeneous hypoechoic region measuring 1.3 x 1.1 x 1.4 cm. Not previously documented. There is a anechoic region in the posterior mid body myometrium of the uterus measuring 10 x 5 x 9 mm, previously 11 x 8 x 10 mm. it demonstrates increased through transmission consistent with a cyst. In the right upper uterine body there is a myometrial hypoechoic heterogeneity measuring 7 x 4 x 6 mm. It has not been previously documented. The double wall endometrial thickness is 18 mm. Adnexa: Right ovary measures 2.6 x 1.2 x 1.9 cm. Left ovary is nonvisualized. US/US pelvic and transvaginal IMPRESSION: Endometrial hyperplasia, endometrial carcinoma is not ruled out. Endometrium is thickened and measured 18 mm. The history states that the patient is postmenopausal, however the patient has an IUD in place. If the patient is not postmenopausal, follow-up within the two-week after menses. Heterogeneous appearing uterus suggesting underlying adenomyosis. Two small intramural leiomyomas are noted. A small cyst in the posterior myometrium could represent a degenerated leiomyoma. Electronically signed by: Elie Soriano MD 12/14/2024 03:43 PM EDT
== END 2024-12-14 14:41 | disposition home or self-care (01) ==
LOC: HO.US 14:40
PROVIDERS: PCP Nurse Practitioner Family; Visit Provider Obstetrics & Gynecology
DX: D25.9 Leiomyoma of uterus, unspecified (principal); R10.2 Pelvic and perineal pain
CPT/HCPCS: 76830; 76856; 81025

== ENCOUNTER 2024-12-14 14:40 | Outpatient (REF) | payer BC, SELFPAY ==
[2024-12-14 16:56] LABS: CT PCR NOT DETECTED (Not Detect.); NG PCR NOT DETECTED (Not Detect.)
== END 2024-12-14 14:41 | disposition home or self-care (01) ==
LOC: HO.LNP 14:40
PROVIDERS: Visit Provider Obstetrics & Gynecology
DX: R10.2 Pelvic and perineal pain (principal); D25.9 Leiomyoma of uterus, unspecified; Z32.02 Encounter for pregnancy test, result negative
CPT/HCPCS: 87491; 87591

== ENCOUNTER → 2024-12-14 14:42 | Outpatient (BNV) | payer BC, SELFPAY | PROVIDERS: PCP Nurse Practitioner Family; Visit Provider Radiology Diagnostic Radiology | DX: N85.00 Endometrial hyperplasia, unspecified (principal) | CPT/HCPCS: 76830; 76856 ==

== ENCOUNTER 2024-12-15 13:03 | Outpatient (AMB) | payer BC, SELFPAY ==
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
--- OUTSIDE RECORDS SUMMARY | 2024-12-15 13:13 | XMS_ITS | Clinical Summary ---
Author Organization 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 Role Phone Unavailable Primary Care Provider [...] annual influenza vaccination at work at the [employer] Screening, lipid 06/16/2021 Paresthesias 06/06/2021 Trigger middle [...] 2022 ZOSTER VACCINES (1 of 2) 2022 INFLUENZA VACCINE (#1) 2024 COVID-19 VACCINE (3 - 2024-2 6 season) 2024 04/28/2020, 04/02/2020 LIPID PANEL 06/23/2026 06/23/2021 SMOKING [...] PM EDT) HCV NON-REACTIV E NON-REACTI VE [facility] Blood 06/23/2021 12:0 5 PM EDT 06/23/2021 12:07 PM EDT Roxy Harris MD LAB BLOOD ORDERABLES Final Result Performing Organization Address [facility]/ZIP Co de Phone Number [address] [address] * Lipid panel (06/23/2021 12:05 PM EDT) HDL 53 mg/dL [facility] Comment: Interpretation <40 mg/dL: Low HDL cholesterol (major risk factor for CHD) Greater than or equal to 60 mg/dL: High HDL cholesterol ( negative risk factor for CHD) HDL - cholesterol is affected by a number of factors, e.g. smoking, excerise, hormones, sex and age. CHOLESTEROL 181 0 - 240 mg/dL [facility] TRIGLYCERIDES 93 30 - 160 mg/dL [facility] LDL 109 50 - 129 mg/dL [facility] Comment: LDL levels in terms of risk for coronary heart disease: <100 mg/dL: Optimal 100-129 mg/dL: Near or above optimal 130-159 mg/dL: Borderline high 160-189 mg/dL: High >190 mg/dL: Very High CARDIAC RISK RATIO 3.4 3.3 - 4.4 C [facility] Blood 06/23/2021 12:0 5 PM EDT 06/23/2021 12:07 PM EDT Roxy Harris MD LAB BLOOD ORDERABLES Final Result [address] [address] from Last 3 Months or Most Recently Relevant to Health Maintenance Insurance [facility] [place] [address] Additional Source Comments The information contained in this document represents components of the legal health record. It is not the complete legal health record.[facility]
== END 2024-12-15 13:47 | disposition home or self-care (01) ==
LOC: HO.HWS 13:03
PROVIDERS: PCP Nurse Practitioner Family; Visit Provider Obstetrics & Gynecology
DX: D25.9 Leiomyoma of uterus, unspecified (principal); R10.2 Pelvic and perineal pain
CPT/HCPCS: 99213

== ENCOUNTER → 2024-12-15 13:03 | Outpatient (BNVA) | payer BC, SELFPAY | PROVIDERS: PCP Nurse Practitioner Family; Visit Provider Obstetrics & Gynecology | DX: D25.1 Intramural leiomyoma of uterus (principal); R10.2 Pelvic and perineal pain; Z13.89 Encounter for screening for other disorder ==

== ENCOUNTER 2024-12-20 11:46 | Outpatient (AMB) | payer BC, SELFPAY ==
[2024-12-20 11:47] VITALS: BP 132/82; BMI 28.3
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
--- OUTSIDE RECORDS SUMMARY | 2024-12-20 14:59 | XMS_ITS | Clinical Summary ---
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 Name Role Phone Unavailable Primary [...] annual influenza vaccination at work at the [employer] Screening, lipid 06/16/2021 Paresthesias 06/06/2021 Trigger [...] PM EDT) HCV NON-REACTIV E NON-REACTI VE [facility] Blood 06/23/2021 12:0 5 PM EDT 06/23/2021 12:07 PM EDT Roxy Harris MD LAB BLOOD ORDERABLES Final Result Performing Organization Address [facility]/ZIP Co de Phone Number [address] [address] * Lipid panel (06/23/2021 12:05 PM EDT) HDL 53 mg/dL [facility] Comment: Interpretation <40 mg/dL: Low HDL cholesterol (major risk factor for CHD) Greater than or equal to 60 mg/dL: High HDL cholesterol ( negative risk factor for CHD) HDL - cholesterol is affected by a number of factors, e.g. smoking, excerise, hormones, sex and age. CHOLESTEROL 181 0 - 240 mg/dL [facility] TRIGLYCERIDES 93 30 - 160 mg/dL [facility] LDL 109 50 - 129 mg/dL [facility] Comment: LDL levels in terms of risk for coronary heart disease: <100 mg/dL: Optimal 100-129 mg/dL: Near or above optimal 130-159 mg/dL: Borderline high 160-189 mg/dL: High >190 mg/dL: Very High CARDIAC RISK RATIO 3.4 3.3 - 4.4 C [facility] Blood 06/23/2021 12:0 5 PM EDT 06/23/2021 12:07 PM EDT Roxy Harris MD LAB BLOOD ORDERABLES Final Result [address] [address] from Last 3 Months or Most Recently Relevant to Health Maintenance Insurance [facility] [place] [address] Additional Source Comments The information contained in this document represents components of the legal health record. It is not the complete legal health record.[facility]
== END 2024-12-20 12:16 | disposition home or self-care (01) ==
LOC: HO.HWS 11:46
PROVIDERS: PCP Nurse Practitioner Family; Visit Provider Obstetrics & Gynecology
DX: R10.2 Pelvic and perineal pain (principal)
CPT/HCPCS: 99213

== ENCOUNTER 2025-02-02 10:27 | Outpatient (AMB) | payer BC, SELFPAY ==
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
[2025-02-02 10:31] VITALS: BP 130/80; PULSE 81; TEMP 36.7; O2SAT 95; BMI 29.8
--- OUTSIDE RECORDS SUMMARY | 2025-02-02 11:56 | XMS_ITS | Clinical Summary ---
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 Name Role Phone Unavailable Primary Care Provider [...] annual influenza vaccination at work at the [employer] Screening, lipid 06/16/2021 Paresthesias 06/06/2021 Trigger [...] 2024 04/28/2020, 04/02/2020 LIPID PANEL 06/23/2026 06/23/2021 RSV VACCINE (1 - 1-dose 75+ series) 10/06/2047 SMOKING STATUS SCREENING (On ce After 26 [...] PM EDT) HCV NON-REACTIV E NON-REACTI VE [facility] Blood 06/23/2021 12:0 5 PM EDT 06/23/2021 12:07 PM EDT Roxy Harris MD LAB BLOOD ORDERABLES Final Result Performing Organization Address City/[facility]/ZIP Co de Phone Number [address] [address] * Lipid panel (06/23/2021 12:05 PM EDT) HDL 53 mg/dL [facility] Comment: Interpretation <40 mg/dL: Low HDL cholesterol (major risk factor for CHD) Greater than or equal to 60 mg/dL: High HDL cholesterol ( negative risk factor for CHD) HDL - cholesterol is affected by a number of factors, e.g. smoking, excerise, hormones, sex and age. CHOLESTEROL 181 0 - 240 mg/dL [facility] TRIGLYCERIDES 93 30 - 160 mg/dL [facility] LDL 109 50 - 129 mg/dL [facility] Comment: LDL levels in terms of risk for coronary heart disease: <100 mg/dL: Optimal 100-129 mg/dL: Near or above optimal 130-159 mg/dL: Borderline high 160-189 mg/dL: High >190 mg/dL: Very High CARDIAC RISK RATIO 3.4 3.3 - 4.4 C [facility] Blood 06/23/2021 12:0 5 PM EDT 06/23/2021 12:07 PM EDT Roxy Harris MD LAB BLOOD ORDERABLES Final Result [address] [address] from Last 3 Months or Most Recently Relevant to Health Maintenance Insurance [facility] FEDERAL [employer] [facility] Additional Source Comments The information contained in this document represents components of the legal health record. It is not the complete legal health record.[facility]
--- OUTSIDE RECORDS SUMMARY | 2025-02-02 11:56 | XMS_ITS | Data Portability ---
Author Organization [facility] Address [address] [place] [address] Assessment Encounter Date Assessment Date Assessment LastModified [...] grossly intact. Eyes: Sclera are not blue. brand ambassadors promotional sales II-XII are grossly intact. Full extraocular motion. [...] Imaging: X-rays ordered, obtained and reviewed at [facility]. These images included 3 views [...] visit note. This note was generated with [facility] [facility] speech recognition collision mechanic dictation software. Please excuse any errors that may have been overlooked during review of this note. Sometimes, these errors may affect the content or meaning of a given sentence. Please call for corrections. nva Not available 07/15/2023 11:41:10 Plan of Treatment Reminders Order Date Submit Date Provider Last Modified By Organization Details Last Modified Time Details Appointments None record ed. Lab None record ed. Referral None record ed. Procedures None record ed. Surgeries None record ed. Imaging XR, elbow, 2 view 024 07/15/19 24 [email or web address] Not available 4 13:04:31 Medication Orders None record ed. Patient TargetsNo targets recorded. Patient InstructionsNo instructions recorded. Reason for Referral None Reported. Procedures Surgical History Date Name Laterality Status Provider Name and Address Organization Details Recorded Time 4 Elbow Kenalog 1cc Injection, L/R completed Jeffery Soler MD [address] [facility] [address], [place], [address], [facility] 07/15/2023 11:43:49 [...] Updated DateTime 07/15/2023 160.02 cm 33.7 kg/m2 69144.55 g Diana Martir [facility] 07/15/2023 [...] Diagnosis SNOMED-CT Code Diagnosis ICD10 Code Diagnosis IMO Codes Diagnosis Note [id number] Jeffery Soler MD [facility] 2nd floor [address], [place] [address] 07/15/2023 10:26:15 08/10/2023 19:39:37 Pain of right elbow joint [id number] M25.521 Right late ral elbow tendinopathy [id number] 74166 M77.11 Health Concerns Section Related Observation LastModified by Organization Detai ls LastModified Time None Recorded Concern Status LastModified by Organization Details LastModified Time None Recorded Advance Directives Directive None Recorded Payers Insurance Date Sequence Insurance Name Policy Number Policy Miller Covered Member ID Miller Member ID Guarantor Name 08/10/2023 1 [place] [employer] [place] [place] 111 Kel Berrios [id number] Kel Dejesus Episode No OBEpisode recorded.
== END 2025-02-02 10:59 | disposition home or self-care (01) ==
PROVIDERS: PCP Nurse Practitioner Family; Visit Provider Physician Assistant
DX: M54.42 Lumbago with sciatica, left side (principal)

== ENCOUNTER 2025-02-13 11:45 | Outpatient (AMB) | payer OTHER, SELFPAY ==
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
[2025-02-13 11:53] VITALS: BP 146/85; PULSE 89; RESP 16; TEMP 36.6; O2SAT 98; BMI 30.6
--- OUTSIDE RECORDS SUMMARY | 2025-02-13 14:29 | XMS_ITS | Data Portability ---
Author Organization [facility], [facility] Address [address] [place] [address] Assessment Encounter Date Assessment Date Assessment LastModified [...] grossly intact. Eyes: Sclera are not blue. plastic tile layer II-XII are grossly intact. Full extraocular motion. [...] Imaging: X-rays ordered, obtained and reviewed at [facility]. These images included 3 views of the [...] visit note. This note was generated with [facility] speech recognition special delivery worker dictation software. Please excuse any errors that [...] XR, elbow, 2 view 024 07/15/19 24 [email or web address] Not available 4 13:04:31 Medication Orders None record ed. Patient TargetsNo targets recorded. Patient InstructionsNo instructions recorded. Reason for Referral None Reported. Procedures Surgical History Date Name Laterality Status Provider Name and Address Organization Details Recorded Time 4 Elbow Kenalog 1cc Injection, L/R completed Jeffery Soler [facility] [address] [facility] [address], [address], [facility] 07/15/2023 11:43:49 Imaging Results None recorded. Procedure [...] Updated DateTime 07/15/2023 160.02 cm 33.7 kg/m2 18582.55 g Diana Martir [facility] 07/15/2023 10:36:18 Social History None recorded. Functional Status None recorded. Mental Status None recorded. Family History Nothing Reported. Medical History No medical history recorded. Gynecological HistoryNo gynecological history recorded. Obstetrics History GPAL:G 0 P 0 0 0 0 Past Encounters Encounter ID Performer Location Encounter Start Date Encounter Closed Date Diagnosis/Indication Diagnosis SNOMED-CT Code Diagnosis ICD10 Code Diagnosis IMO Codes Diagnosis Note [id number] Jeffery Soler MD [facility] 2nd floor [address], [place] [address] 07/15/2023 10:26:15 08/10/2023 19:39:37 Pain of right elbow joint 0738220751 1723610 M25.521 Right late ral elbow tendinopathy 2566772653 37652 M77.11 Health Concerns Section Related Observation LastModified by Organization Detai ls LastModified Time None Recorded Concern Status LastModified by Organization Details LastModified Time None Recorded Advance Directives Directive None Recorded Payers Insurance Date Sequence Insurance Name Policy Number Policy Miller Covered Member ID Miller Member ID Guarantor Name 08/10/2023 1 [place]) 111 Kel Berrios [id number] Kel Dejesus Episode No OBEpisode recorded.
--- OUTSIDE RECORDS SUMMARY | 2025-02-13 14:29 | XMS_ITS | Clinical Summary ---
Author Organization [facility] Address [address] [place] [id number] Phone Care Team Providers Care Truer Pinion And Wheel Name Role Phone Unavailable Primary Care Provider [...] annual influenza vaccination at work at the [employer] Screening, lipid 06/16/2021 Paresthesias 06/06/2021 Trigger middle [...] PM EDT Roxy Harris MD LAB BLOOD BKR ORDERA BLES Final Result Performing Organization Address City/[facility]/ZIP Co de Phone Number [address] [phone] * Lipid panel (06/23/2021 12:05 PM EDT) HDL 53 mg/dL [facility] Comment: Interpretation <40 mg/dL: Low HDL cholesterol (major risk factor for CHD) Greater than or equal to 60 mg/dL: High HDL cholesterol ( negative risk factor for CHD) HDL - cholesterol is affected by a number of factors, e.g. smoking, excerise, hormones, sex and age. CHOLESTEROL 181 0 - 240 mg/dL [facility] TRIGLYCERIDES 93 30 - 160 mg/dL [facility] LDL 109 50 - 129 mg/dL [facility] Comment: LDL levels in terms of risk for coronary heart disease: <100 mg/dL: Optimal 100-129 mg/dL: Near or above optimal 130-159 mg/dL: Borderline high 160-189 mg/dL: High >190 mg/dL: Very High CARDIAC RISK RATIO 3.4 3.3 - 4.4 C [facility] Blood 06/23/2021 12:0 5 PM EDT 06/23/2021 12:07 PM EDT us Roxy Harris MD LAB BLOOD BKR ORDERA BLES Final Result Performing Organization Address City/[facility]/ZIP Co de Phone Number [address] [phone] from Last 3 Months or Most Recently Relevant to Health Maintenance Insurance BLUE CROSS FEDERAL [employer] [facility] Additional Source Comments The information contained in this document represents components of the legal health record. It is not the complete legal health record.[facility]
== END 2025-02-13 12:30 | disposition home or self-care (01) ==
PROVIDERS: PCP Nurse Practitioner Family; Visit Provider Nurse Practitioner Family
DX: M43.6 Torticollis (principal); M54.42 Lumbago with sciatica, left side

== ENCOUNTER → 2025-02-13 11:45 | Outpatient (BNVA) | payer BC, SELFPAY | PROVIDERS: PCP Nurse Practitioner Family; Visit Provider Nurse Practitioner Family | DX: M54.2 Cervicalgia (principal); M54.42 Lumbago with sciatica, left side; M43.6 Torticollis | CPT/HCPCS: 99212 ==

== ENCOUNTER 2025-02-21 10:51 | Outpatient (REF) | payer OTHER, BC, SELFPAY ==
--- NOTE | ~2025-02-21 | XR_ITS ---
EXAMINATION: XR LUMBOSACRAL SPINE CLINICAL INFORMATION: M54.42 - Lumbago with sciatica, left side COMPARISON: None available. TECHNIQUE: Three views of the lumbosacral spine. FINDINGS: There are 5 nonrib-bearing lumbar segments. There is mild levoscoliosis. T12-L1 and L1-2: Unremarkable L2-3: There is subtle disc space narrowing with small anterior osteophytes. L3-4: There is mild disc space narrowing, endplate osteophytes, and mild facet sclerosis. L4-5: There is moderate disc space narrowing and possible segmentation anomaly or rudimentary disc. L5-S1: Unremarkable. XR/XR lumbar spine 2-3V IMPRESSION: Minimal degenerative change and mild levoscoliosis. L4-5: Possible incomplete segmentation. Electronically signed by: Elie Soriano MD 02/21/2025 11:26 AM EST
--- NOTE | ~2025-02-21 | XR_ITS ---
EXAMINATION: XR THORACIC SPINE CLINICAL INFORMATION: M54.42 - Lumbago with sciatica, left side COMPARISON: None available. TECHNIQUE: 2 views of the thoracic spine were obtained. FINDINGS: Overlapping bony and soft tissues moderately obscure the cervical thoracic junction. Otherwise, vertebral body height and alignment is preserved. There is mild disc space narrowing and minimal endplate osteophytes in the midthoracic spine, approximately T8-9. XR/XR thoracic spine 2V IMPRESSION: Minimal degenerative change at approximately T8/9. Electronically signed by: Elie Soriano MD 02/21/2025 11:22 AM PHILLIP
--- OUTSIDE RECORDS SUMMARY | 2025-02-21 13:11 | XMS_ITS | Clinical Summary ---
Author Organization [facility] Address [address] [place] [phone] Phone Care Team Providers Care Warehouse Order Picker Name Role Phone Unavailable Primary Care Provider [...] annual influenza vaccination at work at the [facility] Screening, lipid 06/16/2021 Paresthesias 06/06/2021 [...] ORDERA BLES Final Result Performing Organization Address [facility]/ZIP Co de Phone Number [address] [phone] * Lipid panel (06/23/2021 12:05 PM EDT) HDL 53 mg/dL [facility] Comment: Interpretation <40 mg/dL: Low HDL cholesterol (major risk factor for CHD) Greater than or equal to 60 mg/dL: High HDL cholesterol ( negative risk factor for CHD) HDL - cholesterol is affected by a number of factors, e.g. smoking, excerise, hormones, sex and age. CHOLESTEROL 181 0 - 240 mg/dL [facility] TRIGLYCERIDES 93 30 - 160 mg/dL [facility] LDL 109 50 - 129 mg/dL [facility] Comment: LDL levels in terms of risk for coronary heart disease: <100 mg/dL: Optimal 100-129 mg/dL: Near or above optimal 130-159 mg/dL: Borderline high 160-189 mg/dL: High >190 mg/dL: Very High CARDIAC RISK RATIO 3.4 3.3 - 4.4 C [facility] Blood 06/23/2021 12:0 5 PM EDT 06/23/2021 12:07 PM EDT us Roxy Harris MD LAB BLOOD BKR ORDERA BLES Final Result Performing Organization Address [facility]/ZIP Co de Phone Number [address] [phone] from Last 3 Months or Most Recently Relevant to Health Maintenance Insurance BLUE CROSS FEDERAL [facility] Additional Source Comments The information contained in this document represents components of the legal health record. It is not the complete legal health record.[facility]
--- OUTSIDE RECORDS SUMMARY | 2025-02-21 13:12 | XMS_ITS | Data Portability ---
Author Organization [facility], [facility] Address [address] [place] [address] Assessment Encounter Date Assessment Date Assessment LastModified [...] grossly intact. Eyes: Sclera are not blue. motorboat operator II-XII are grossly intact. Full extraocular motion. [...] Imaging: X-rays ordered, obtained and reviewed at [facility]. These images included 3 views [...] note. This note was generated with [facility] speech recognition assistant nurse manager dictation software. Please excuse any errors that [...] XR, elbow, 2 view 024 07/15/19 24 [email or web address] Not available 4 13:04:31 Medication Orders None record ed. Patient TargetsNo targets recorded. Patient InstructionsNo instructions recorded. Reason for Referral None Reported. Procedures Surgical History Date Name Laterality Status Provider Name and Address Organization Details Recorded Time 4 Elbow Kenalog 1cc Injection, L/R completed Jeffery Soler MD [address] [facility] [address], [place], [address], [facility] 07/15/2023 11:43:49 Imaging Results None recorded. [...] Updated DateTime 07/15/2023 160.02 cm 33.7 kg/m2 09861.55 g Diana Martir [facility] 07/15/2023 10:36:18 Social History None recorded. Functional Status None recorded. Mental Status None recorded. Family History Nothing Reported. Medical History No medical history recorded. Gynecological HistoryNo gynecological history recorded. Obstetrics History GPAL:G 0 P 0 0 0 0 Past Encounters Encounter ID Performer Location Encounter Start Date Encounter Closed Date Diagnosis/Indication Diagnosis SNOMED-CT Code Diagnosis ICD10 Code Diagnosis IMO Codes Diagnosis Note [id number] Jeffery Soler MD [facility] 2nd floor [address], [place] [address] 07/15/2023 10:26:15 08/10/2023 19:39:37 Pain of right elbow joint [id number] 1618496 M25.521 Right late ral elbow tendinopathy 0584404084 21603 M77.11 Health Concerns Section Related Observation LastModified by Organization Detai ls LastModified Time None Recorded Concern Status LastModified by Organization Details LastModified Time None Recorded Advance Directives Directive None Recorded Payers Insurance Date Sequence Insurance Name Policy Number Policy Miller Covered Member ID Miller Member ID Guarantor Name 08/10/2023 1 [place] [employer] [place] [place]) 111 Kel Berrios [id number] Kel Dejesus Episode No OBEpisode recorded.
== END 2025-02-21 10:52 | disposition home or self-care (01) ==
LOC: HO.HMGCX 10:51
PROVIDERS: PCP Nurse Practitioner Family; Visit Provider Nurse Practitioner Family
DX: M54.42 Lumbago with sciatica, left side (principal)
CPT/HCPCS: 72070; 72100

== ENCOUNTER → 2025-02-21 10:55 | Outpatient (BNV) | payer OTHER, SELFPAY | PROVIDERS: PCP Nurse Practitioner Family; Visit Provider Radiology Diagnostic Radiology | DX: M54.42 Lumbago with sciatica, left side (principal); M47.816 Spondylosis without myelopathy or radiculopathy, lumbar region; M41.86 Other forms of scoliosis, lumbar region; M47.814 Spondylosis without myelopathy or radiculopathy, thoracic region | CPT/HCPCS: 72070; 72100 ==

== ENCOUNTER 2025-03-06 11:35 | Outpatient (AMB) | payer OTHER, SELFPAY ==
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
[2025-03-06 11:43] VITALS: BP 190/88; PULSE 92; RESP 16; TEMP 36.6; O2SAT 98; BMI 29.6
[2025-03-06 11:58] VITALS: BP 134/90
--- OUTSIDE RECORDS SUMMARY | 2025-03-06 15:23 | XMS_ITS | Clinical Summary ---
Author Organization [facility] Address [address] [place] [id number] Phone Care Team Providers Care Business Case Analyst Name Role Phone Unavailable Primary Care Provider [...] annual influenza vaccination at work at the [employer] Screening, lipid 06/16/2021 Paresthesias 06/06/2021 Trigger [...] ORDERA BLES Final Result Performing Organization Address City/[facility]/ZIP Co de Phone Number [address] [address] * Lipid panel (06/23/2021 12:05 PM EDT) HDL 53 mg/dL [facility] Comment: Interpretation <40 mg/dL: Low HDL cholesterol (major risk factor for CHD) Greater than or equal to 60 mg/dL: High HDL cholesterol ( negative risk factor for CHD) HDL - cholesterol is affected by a number of factors, e.g. smoking, excerise, hormones, sex and age. CHOLESTEROL 181 0 - 240 mg/dL [facility] TRIGLYCERIDES 93 30 - 160 mg/dL [facility] LDL 109 50 - 129 mg/dL [facility] Comment: LDL levels in terms of risk for coronary heart disease: <100 mg/dL: Optimal 100-129 mg/dL: Near or above optimal 130-159 mg/dL: Borderline high 160-189 mg/dL: High >190 mg/dL: Very High CARDIAC RISK RATIO 3.4 3.3 - 4.4 [facility] Blood 06/23/2021 12:0 5 PM EDT 06/23/2021 12:07 PM EDT us Roxy Harris MD LAB BLOOD BKR ORDERA BLES Final Result Performing Organization Address City/[facility]/ZIP Co de Phone Number [address] [address] from Last 3 Months or Most Recently Relevant to Health Maintenance Insurance BLUE [employer]OSS [employer] [facility] Additional Source Comments The information contained in this document represents components of the legal health record. It is not the complete legal health record.[facility]
--- OUTSIDE RECORDS SUMMARY | 2025-03-06 15:23 | XMS_ITS | Data Portability ---
Author Organization [facility], [facility] Address [address] [place] [address] Assessment Encounter Date Assessment Date Assessment LastModified [...] grossly intact. Eyes: Sclera are not blue. splitting machine feeder II-XII are grossly intact. Full extraocular motion. [...] Imaging: X-rays ordered, obtained and reviewed at [facility]. These images included 3 views [...] visit note. This note was generated with [facility] speech recognition automatic vulcanizing operator dictation software. Please excuse any errors that [...] XR, elbow, 2 view 024 07/15/19 24 [email or web address] Not available 4 13:04:31 Medication Orders None record ed. Patient TargetsNo targets recorded. Patient InstructionsNo instructions recorded. Reason for Referral None Reported. Procedures Surgical History Date Name Laterality Status Provider Name and Address Organization Details Recorded Time 4 Elbow Kenalog 1cc Injection, L/R completed Jeffery Soler MD [address] [facility] [address], [place], [address], [facility] [...] Updated DateTime 07/15/2023 160.02 cm 33.7 kg/m2 09278.55 g Diana Martir [facility] 07/15/2023 [...] ICD10 Code Diagnosis IMO Codes Diagnosis Note [id number] Jeffery Soler MD [facility] 2nd floor [address], [place] [address] 07/15/2023 10:26:15 08/10/2023 19:39:37 Pain of right elbow joint [id number] M25.521 Right late ral elbow tendinopathy [id number] 98776 M77.11 Health Concerns Section Related Observation LastModified by Organization Detai ls LastModified Time None Recorded Concern Status LastModified by Organization Details LastModified Time None Recorded Advance Directives Directive None Recorded Payers Insurance Date Sequence Insurance Name Policy Number Policy Miller Covered Member ID Miller Member ID Guarantor Name 08/10/2023 1 [place] [employer] [place] [place]) [address] Kel Berrios [id number] Kel Dejesus Episode No OBEpisode recorded.
== END 2025-03-06 12:09 | disposition home or self-care (01) ==
LOC: HO.HMCFM 11:36
PROVIDERS: PCP Nurse Practitioner Family; Visit Provider Nurse Practitioner Family
DX: M54.50 Low back pain, unspecified (principal); M54.2 Cervicalgia

== ENCOUNTER 2025-03-06 11:35 | Outpatient (REF) | payer OTHER, BC, SELFPAY ==
--- NOTE | ~2025-03-06 | XR_ITS ---
EXAMINATION: XR CERVICAL SPINE 2-3 VIEWS HISTORY: M54.2 - Cervicalgia COMPARISON: Comparison is made with the prior examination dated 02/26/2020. FINDINGS: AP, lateral, and open-mouth odontoid views of the cervical spine are submitted. Osseous mineralization is normal. Seven cervical vertebral bodies are identified maintaining normal height without evidence of fracture or subluxation. There is straightening of the normal cervical lordosis. There is mild degenerative disc disease with disc space narrowing and osteophyte formation. The odontoid and lateral masses of C1 are intact. There is no prevertebral soft tissue swelling. XR/XR cervical spine 3V IMPRESSION: Straightening of the normal cervical lordosis. Mild degenerative disc disease. Electronically signed by: Colin Ramos MD 03/06/2025 02:06 PM PHILLIP
--- OUTSIDE RECORDS SUMMARY | 2025-03-06 17:44 | XMS_ITS | Data Portability ---
Author Organization [facility], [facility] Address [address] [place] [address] Assessment Encounter Date Assessment Date Assessment LastModified [...] grossly intact. Eyes: Sclera are not blue. bike technician II-XII are grossly intact. Full extraocular motion. [...] Imaging: X-rays ordered, obtained and reviewed at [facility]. These images included 3 views of [...] visit note. This note was generated with [facility] speech recognition leather tacker dictation software. Please excuse any errors that [...] XR, elbow, 2 view 024 07/15/19 24 [email or web address] Not available 4 13:04:31 Medication Orders None record ed. Patient TargetsNo targets recorded. Patient InstructionsNo instructions recorded. Reason for Referral None Reported. Procedures Surgical History Date Name Laterality Status Provider Name and Address Organization Details Recorded Time 4 Elbow Kenalog 1cc Injection, L/R completed Jeffery Soler MD [address] [facility] [address], [place], [address], [facility] 07/15/2023 11:43:49 Imaging Results None recorded. [...] Updated DateTime 07/15/2023 160.02 cm 33.7 kg/m2 40331.55 g Diana Martir [facility] 07/15/2023 10:36:18 Social History None recorded. Functional Status None recorded. Mental Status None recorded. Family History Nothing Reported. Medical History No medical history recorded. Gynecological HistoryNo gynecological history recorded. 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
== END 2025-03-06 11:36 | disposition home or self-care (01) ==
LOC: HO.HMGCX 11:35
PROVIDERS: PCP Nurse Practitioner Family; Visit Provider Nurse Practitioner Family
DX: M54.2 Cervicalgia (principal); M54.50 Low back pain, unspecified; Z79.899 Other long term (current) drug therapy
CPT/HCPCS: 72040; 99212

== ENCOUNTER → 2025-03-06 13:53 | Outpatient (BNV) | payer OTHER, SELFPAY | PROVIDERS: PCP Nurse Practitioner Family; Visit Provider Radiology Diagnostic Radiology | DX: M50.30 Other cervical disc degeneration, unspecified cervical region (principal); M40.50 Lordosis, unspecified, site unspecified | CPT/HCPCS: 72040 ==

== ENCOUNTER 2025-04-05 15:50 | Emergency (ER) | payer OTHER, BC, SELFPAY ==
[2025-04-05 15:56] VITALS: BP 181/93; PULSE 91; RESP 18; TEMP 36.4; O2SAT 99; BMI 30.1
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
--- OUTSIDE RECORDS SUMMARY | 2025-04-05 17:04 | XMS_ITS | Clinical Summary ---
Author Organization [facility] Address [address] [place] [phone] Phone Care Team Providers Care Home Visitor Name Role Phone Unavailable Primary Care Provider [...] annual influenza vaccination at work at the [employer] Screening, lipid 06/16/2021 Paresthesias 06/06/2021 [...] ORDERA BLES Final Result Performing Organization Address City/[facility]/ZIP Co de Phone Number [address] [address] * Lipid panel (06/23/2021 12:05 PM EDT) HDL 53 mg/dL [facility] Comment: Interpretation <40 mg/dL: Low HDL cholesterol (major risk factor for CHD) Greater than or equal to 60 mg/dL: High HDL cholesterol ( negative risk factor for CHD) HDL - cholesterol is affected by a number of factors, e.g. smoking, excerise, hormones, sex and age. CHOLESTEROL 181 0 - 240 mg/dL [facility] TRIGLYCERIDES 93 30 - 160 mg/dL [facility] LDL 109 50 - 129 mg/dL [facility] Comment: LDL levels in terms of risk for coronary heart disease: <100 mg/dL: Optimal 100-129 mg/dL: Near or above optimal 130-159 mg/dL: Borderline high 160-189 mg/dL: High >190 mg/dL: Very High CARDIAC RISK RATIO 3.4 3.3 - 4.4 C [facility] Blood 06/23/2021 12:0 5 PM EDT 06/23/2021 12:07 PM EDT us Roxy Harris MD LAB BLOOD BKR ORDERA BLES Final Result Performing Organization Address City/[facility]/ZIP Co de Phone Number [address] [address] from Last 3 Months or Most Recently Relevant to Health Maintenance Insurance [employer] [facility] Additional Source Comments The information contained in this document represents components of the legal health record. It is not the complete legal health record.[facility]
[2025-04-05 19:07] VITALS: BP 182/90; PULSE 80; RESP 18; TEMP 36.7; O2SAT 98
== END 2025-04-05 19:09 | disposition home or self-care (01) ==
PROVIDERS: Emergency Provider Emergency Medicine; PCP Nurse Practitioner Family
DX: M54.16 Radiculopathy, lumbar region (principal); M54.2 Cervicalgia
CPT/HCPCS: 96372; 99283; 99284; J1885

== ENCOUNTER 2025-04-10 13:53 | Outpatient (AMB) | payer BC, SELFPAY ==
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
[2025-04-10 14:17] VITALS: BP 152/104; BMI 30.1
--- OUTSIDE RECORDS SUMMARY | 2025-04-10 17:42 | XMS_ITS | Clinical Summary ---
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 Name Role Phone Unavailable Primary Care Provider [...] annual influenza vaccination at work at the [employer] Screening, lipid 06/16/2021 Paresthesias 06/06/2021 Trigger [...] ORDERA BLES Final Result Performing Organization Address City/[facility]/ZIP Co de Phone Number [address] [address] * Lipid panel (06/23/2021 12:05 PM EDT) HDL 53 mg/dL [facility] Comment: Interpretation <40 mg/dL: Low HDL cholesterol (major risk factor for CHD) Greater than or equal to 60 mg/dL: High HDL cholesterol ( negative risk factor for CHD) HDL - cholesterol is affected by a number of factors, e.g. smoking, excerise, hormones, sex and age. CHOLESTEROL 181 0 - 240 mg/dL [facility] TRIGLYCERIDES 93 30 - 160 mg/dL [facility] LDL 109 50 - 129 mg/dL [facility] Comment: LDL levels in terms of risk for coronary heart disease: <100 mg/dL: Optimal 100-129 mg/dL: Near or above optimal 130-159 mg/dL: Borderline high 160-189 mg/dL: High >190 mg/dL: Very High CARDIAC RISK RATIO 3.4 3.3 - 4.4 C [facility] Blood 06/23/2021 12:0 5 PM EDT 06/23/2021 12:07 PM EDT us Roxy Harris MD LAB BLOOD BKR ORDERA BLES Final Result Performing Organization Address City/[facility]/ZIP Co de Phone Number [address] [address] from Last 3 Months or Most Recently Relevant to Health Maintenance Insurance [id number] [facility] Additional Source Comments The information contained in this document represents components of the legal health record. It is not the complete legal health record.[facility]
== END 2025-04-10 15:17 | disposition home or self-care (01) ==
LOC: HO.HWS 13:54
PROVIDERS: PCP Nurse Practitioner Family; Visit Provider Obstetrics & Gynecology
DX: N93.9 Abnormal uterine and vaginal bleeding, unspecified (principal)
CPT/HCPCS: 58100; 99213

== ENCOUNTER 2025-04-10 13:53 | Outpatient (REF) | payer BC, SELFPAY ==
[2025-04-10 15:58] LABS: Hematocrit 41.1 % (37.0-47.0); Hemoglobin 14.2 g/dl (12.0-16.0); Mean Corpuscular HGB Conc 34.5 g/dl (31.0-35.0); Mean Corpuscular Hemoglobin 31.3 pg (27.0-33.0); Mean Corpuscular Volume 90.7 fL (80.0-98.0); NRBC Abs Auto 0.000 X10*3/uL (0.0-0.012); NRBC Pct Auto 0.0 /100WBC (0.0-0.2); Platelet Count 300 X10*3/uL (160-400); Red Blood Count 4.53 X10*6/uL (4.20-5.50); White Blood Count 7.0 X10*3/uL (4.8-10.8)
== END 2025-04-10 13:54 | disposition home or self-care (01) ==
LOC: HO.LAB 13:53
PROVIDERS: PCP Nurse Practitioner Family; Visit Provider Obstetrics & Gynecology
DX: N93.9 Abnormal uterine and vaginal bleeding, unspecified (principal)
CPT/HCPCS: 36415; 85027

== ENCOUNTER 2025-04-10 16:12 | Outpatient (REF) | payer BC, SELFPAY | END 2025-04-10 16:13 | disposition home or self-care (01) | LOC: HO.LNP 16:12 | PROVIDERS: Visit Provider Obstetrics & Gynecology | DX: N93.9 Abnormal uterine and vaginal bleeding, unspecified (principal) | CPT/HCPCS: 88305 ==